=== PATIENT | male | born 1960 | race Caucasian/White ===

== ENCOUNTER 2021-09-12 12:05 | Emergency (ER) | payer MEDICARE, MEDICAID, SELFPAY ==
--- NOTE | ~2021-09-12 | CT_ITS ---
EXAMINATION: CT ABDOMEN AND PELVIS WITH CONTRAST CLINICAL INFORMATION: Upper abdominal pain. COMPARISON: None TECHNIQUE: Multidetector volumetric images were obtained from the superior aspect of the liver through the pubic symphysis following administration 85 mL of Omnipaque 350 intravenous contrast. Sagittal and coronal reformatted images were obtained on the technologist's workstation. Oral contrast: No This CT examination was performed using dose optimization techniques as appropriate, variously including the following: *Automated exposure control *Adjustment of mA and/or kV according to patient size (this includes techniques or standardized protocols for targeted exams where dose is matched to indication/reason for exam; i.e. extremities or head) *Use of iterative reconstruction technique DLP: 778 mGy-cm FINDINGS: LUNG BASES: The lung bases are clear. Heart size is normal. There is esophageal mural thickening or small hiatal hernia at the GE junction. LIVER, GALLBLADDER, AND BILIARY TREE: The liver is normal in size, shape, and hypoattenuated. No focal hepatic lesion or biliary ductal dilatation is present. The gallbladder is unremarkable with no evidence of radiopaque gallstones, gallbladder wall thickening, or obvious pericholecystic inflammatory changes. PANCREAS: The head and the proximal body the pancreas appears atrophic. SPLEEN: Unremarkable. ADRENAL GLANDS: Unremarkable. KIDNEYS AND URETERS: The kidneys are normal in size, shape, and attenuation. No hydronephrosis, hydroureter, or calculi seen. No perinephric stranding. BLADDER: Mild bladder wall thickening is seen without any radiopaque calculi Unremarkable. GASTROINTESTINAL TRACT: There is moderate scattered stool seen throughout the colon without distention. The small bowel loops are nonspecific. The appendix is normal caliber. There is focal mesenteric haziness in the midabdomen with small shotty mesenteric lymph nodes seen. No free air or free fluid seen. ABDOMINAL WALL: No significant hernia is appreciated. LYMPH NODES: Normal. VASCULAR: Unremarkable. PELVIC VISCERA: The prostate gland is mildly enlarged with central gland calcification. OSSEOUS STRUCTURES: There are degenerative disc changes with vacuum disc phenomenon at T12-L1 disc level with mild ventral and dorsal spondylosis. CT/CT abdomen pelvis w con IMPRESSION: Kori mesentery in the midabdomen with small shotty lymph nodes seen. The findings are nonspecific and etiology is not known.. Moderate constipation. Atrophic pancreatic head, uncinate process and the proximal body. Mild fatty attenuation of liver. Fleischner guidelines were followed.
[2021-09-12 12:10] VITALS: BP 134/83; PULSE 89; RESP 18; TEMP 36.6; O2SAT 97; BMI 39.4
[2021-09-12 13:37] LABS: MANUAL DIFF FLAG NO
[2021-09-12 13:39] LABS: Basophils Percent Auto 0.4 % (0-2); Eosinophils Absolute Auto 0.1 X10*3/uL (0.0-0.4); Eosinophils Percent Auto 2.1 % (0-4); Hematocrit 42.4 % (42.0-52.0); Hemoglobin 14.2 g/dl (14.0-18.0); Imm Gran Abs Auto 0.02 X10*3/uL (0.00-0.03); Imm Gran Pct Auto 0.3 % (0.0-0.4); Lymphocytes Absolute Auto 2.1 X10*3/uL (1.2-4.9); Lymphocytes Percent Auto 30.9 % (20-40); Mean Corpuscular HGB Conc 33.5 g/dl (31.0-36.0); Mean Corpuscular Volume 86.7 fL (80.0-98.0); Mean Platelet Volume 9.5 fL (9.4-12.4); Monocytes Absolute Auto 0.5 X10*3/uL (0.1-1.2); Monocytes Percent Auto 7.9 % (2-11); Neutrophils Percent Auto 58.4 % (45-73); Platelet Count 198 X10*3/uL (160-400); Red Blood Count 4.89 X10*6/uL (4.60-5.80); Red Cell Distribution Width 11.9 % (11.0-16.0); White Blood Count 6.8 X10*3/uL (4.8-10.8)
[2021-09-12 13:50] LABS: Anion Gap 12 (12-20); Blood Urea Nitrogen 18 mg/dL (9-16); Calcium 9.2 mg/dL (8.4-10.2); Carbon Dioxide 28 mmol/L (22-29); Chloride 101 mmol/L (96-108); Creatinine Clr Calc Pharmacy 73.3; Estimated Glomerular Filt Rate > 60; Glucose Random 325 mg/dL (60-115); Potassium 4.1 mmol/L (3.3-5.1); Sodium 137 mmol/L (135-145)
[2021-09-12 15:56] LABS: Appearance Urine CLEAR; Color Urine YELLOW; Glucose Urine UA >=1000 MG/DL (NEG); Leukocyte Esterase Urine NEG (NEG); Nitrite Urine NEG (NEG); PH 5.5 (5.0-8.0); Specific Gravity - Urine 1.025 (1.005-1.025); Urine Blood NEG (NEG); Urine Ketones 5 MG/DL (NEG); Urine Protein TRACE MG/DL (NEG-TRACE)
[2021-09-12 16:04] LABS: Bacteria Urine TRACE /LPF; RBC Urine 0 /HPF (0); WBC Urine 0 /HPF (0-4)
[2021-09-12 16:11] VITALS: BP 141/81; PULSE 84; RESP 18; TEMP 36.6; O2SAT 95
--- NOTE | 2021-09-12 16:20 | ED.ABDPAIN ---
HPI - Abdominal Pain General Chief Complaint: Abdominal Pain <JESS Quezada Last Filed: 09/12/21 17:54> Stated Complaint: abd pain <JESS Quezada Last Filed: 09/12/21 17:54> Time Seen by Provider: 09/12/21 15:51 <JESS Quezada Last Filed: 09/12/21 17:54> Source: patient <JESS Quezada Last Filed: 09/12/21 17:54> Mode of arrival: ambulatory <JESS Quezada Last Filed: 09/12/21 17:54> Limitations: no limitations <JESS Quezada Last Filed: 09/12/21 17:54> History of Present Illness HPI narrative: 61-year-old IDDM male presents for 3 days of abdominal pain. Patient states his entire abdomen hurts, and he feels gassy and bloated. Patient went to his primary care today, who sent him here for evaluation. Patient had a regular bowel movement yesterday. Patient has a history of constipation, and 5 days ago he had not had a stool for 2 and half days so he started using MiraLax. Three days ago he had a dark stool. No dark, tarry, or bloody stool since then. His pain is 5/10 now, he has not been able to sleep due to the pain. He does not drink alcohol, does not take ibuprofen. No abdominal surgeries. No fevers, no vomiting, no diarrhea, no nausea. No dysuria or hematuria. No radiation of the pain. <JESS Quezada Last Filed: 09/12/21 17:54> MD elicited complaint: abdominal pain <JESS Quezada Last Filed: 09/12/21 17:54> Pertinent past history: constipation <JESS Quezada Last Filed: 09/12/21 17:54> Onset (ago): day(s) (3) <JESS Quezada Last Filed: 09/12/21 17:54> Pain Consistency: constant <JESS Quezada Last Filed: 09/12/21 17:54> Location: diffuse <JESS Quezada Last Filed: 09/12/21 17:54> Severity: moderate <JESS Quezada Last Filed: 09/12/21 17:54> Pain scale (0-10): 5 <JESS Quezada Last Filed: 09/12/21 17:54> Quality: cramping and aching <JESS Quezada Last Filed: 09/12/21 17:54> Radiation: none <JESS Quezada Last Filed: 09/12/21 17:54> Migration to: no migration <JESS Quezada Last Filed: 09/12/21 17:54> Exacerbating factors: nothing <JESS Quezada Last Filed: 09/12/21 17:54> Relieving factors: nothing <JESS Quezada Last Filed: 09/12/21 17:54> Related Data Home Medications: Previous Rx's Medication Instructions Recorded lactulose 20 gram oral packet 20 g PO DAILY 3 Days #3 ea 09/12/21 <JESS Quezada Last Filed: 09/12/21 17:54> Allergies/Adverse Reactions: Allergies Allergy/AdvReac Type Severity Reaction Status Date / Time codeine [CODEINE] Allergy Unknown CONFUSION Unverified 03/08/20 15:06 From PERCOCET Allergy Unknown CONFUSION Uncoded 03/08/20 15:06 <JESS Quezada Last Filed: 09/12/21 17:54> Review of Systems Constitutional: Denies body ache(s), Denies chills, Denies fatigue, Denies fever(s), Denies headache(s) and Denies weakness <JESS Quezada Last Filed: 09/12/21 17:54> Denies vertigo, Denies dizziness, Denies otalgia, Denies headache(s), Denies post nasal drip and Denies sore throat <JESS Quezada Last Filed: 09/12/21 17:54> Cardiovascular: Denies chest pain, Denies syncope, Denies leg edema, Denies lightheadedness, Denies Loss of Consciousness, Denies palpitations and Denies dyspnea <JESS Quezada Last Filed: 09/12/21 17:54> Respiratory: Denies chest congestion, Denies cough and Denies dyspnea <JESS Quezada - Last Filed: 09/12/21 17:54> Gastrointestinal: Reports abdominal pain, Reports melena (once 3 days ago), Reports bloating, Denies hematochezia, Denies tenesmus, Denies coffee ground emesis, Reports constipation, Denies excessive flatus, Denies diarrhea, Denies nausea and Denies vomiting <JESS Quezada - Last Filed: 09/12/21 17:54> Genitourinary: Reports no additional male genitourinary complaints <JESS Quezada - Last Filed: 09/12/21 17:54> Musculoskeletal: Reports no additional musculoskeletal complaints <JESS Quezada - Last Filed: 09/12/21 17:54> Skin/Breast: Denies rash <JESS Quezada - Last Filed: 09/12/21 17:54> Denies confusion, Denies vertigo, Denies dizziness, Denies syncope, Denies headache(s) and Denies weakness <JESS Quezada - Last Filed: 09/12/21 17:54> Psychiatric: Denies anxiety, Denies confusion and Denies depression <JESS Quezada - Last Filed: 09/12/21 17:54> Endocrine: Denies fatigue and Denies palpitations <JESS Quezada - Last Filed: 09/12/21 17:54> [facility] Past Medical History [facility] Narrative: IDDM HTN HLD asthma <JESS Quezada - Last Filed: 09/12/21 17:54> Social History Social History: Social History Advance Directives: No Advance Directives Information Provided: No <JESS Quezada - Last Filed: 09/12/21 17:54> Physical Exam ED Vital Signs: Vital Signs - 24 hr 09/12/21 12:10 09/12/21 16:11 09/12/21 18:59 Temperature 97.8 F 98 F 98 F Pulse Rate 89 84 82 Respiratory Rate 18 18 16 Blood Pressure 134/83 141/81 H 134/74 Pulse Oximetry 97 95 95 BMI result Body Mass Index 39.4 <JESS Quezada Last Filed: 09/12/21 17:54> Vital Signs - 24 hr 09/12/21 12:10 09/12/21 16:11 09/12/21 18:59 Temperature 97.8 F 98 F 98 F Pulse Rate 89 84 82 Respiratory Rate 18 18 16 Blood Pressure 134/83 141/81 H 134/74 Pulse Oximetry 97 95 95 BMI result Body Mass Index 39.4 <Chris Fisher [place] - Last Filed: 09/12/21 21:45> Const General: alert, awake and tired appearing; No confusion <Arely Hardy [facility] Last Filed: 09/12/21 17:54> Nutritional Appearance: obese centrally obese <Arely Hardy [facility] Last Filed: 09/12/21 17:54> Orientation/consciousness: patient oriented x3 and No confusion <Arely Hardy [place] - Last Filed: 09/12/21 17:54> Limitations: no limitations <Arely Hardy [facility] Last Filed: 09/12/21 17:54> HENMT Head: Yes normal to inspection, Yes No palpable skull fracture present, Yes normocephalic and Yes atraumatic <Arely Hardy [facility] Last Filed: 09/12/21 17:54> Ears: hearing grossly normal bilaterally <Arely Hardy [place] - Last Filed: 09/12/21 17:54> General nose exam: Normal external nose present <Arely Hardy [facility] Last Filed: 09/12/21 17:54> Face and sinus: Yes normal facial exam <Arely Hardy [facility] Last Filed: 09/12/21 17:54> Mouth: Normal oral and palatal mucosa present <Arely Hardy [facility] Last Filed: 09/12/21 17:54> Throat: Yes posterior oropharynx normal <Arely Hardy [facility] Last Filed: 09/12/21 17:54> Eyes Sclerae: sclerae normal <Arely Hardy [facility] Last Filed: 09/12/21 17:54> Pupils: Equal, round and reactive pupils present <JESS Quezada Last Filed: 09/12/21 17:54> EOM: EOMs intact bilaterally <Arely Hardy [facility] Last Filed: 09/12/21 17:54> Neck Neck: Yes normal visual inspection, Yes full ROM, Yes no lymphadenopathy, Yes no meningeal signs and Yes trachea midline <Arely Hardy PA - Last Filed: 09/12/21 17:54> Resp Effort & Inspection: normal respiratory effort and able to speak in complete sentences <Arely Hardy [facility] Last Filed: 09/12/21 17:54> Auscultation: clear to auscultation bilaterally, no crackles, no rales, no rhonchi and no wheezes <Arely Hardy [facility] Last Filed: 09/12/21 17:54> Cardio Rate: regular rate <Arely Hardy [facility] Last Filed: 09/12/21 17:54> Rhythm: regular rhythm <Arely Hardy [facility] Last Filed: 09/12/21 17:54> Heart sounds: S1 normal heart sound present and S2 normal heart sound present <Arely Hardy [facility] Last Filed: 09/12/21 17:54> GI Inspection: Yes distended, Yes Abdominal panniculus present and Yes obesity <Arely Hardy [facility] Last Filed: 09/12/21 17:54> Palpation (GI): Soft to palpation, not firm, Tenderness to palpation present (GI) in the epigastrum, in the LUQ and in the RUQ, Guarding due to palpation present (GI) in the LUQ and in the RUQ and not rigid <Arely Hardy [facility] Last Filed: 09/12/21 17:54> Percussion: Yes normal to percussion <Arely Hardy [facility] Last Filed: 09/12/21 17:54> Auscultation: normal bowel sounds <Arely Hardy [facility] Last Filed: 09/12/21 17:54> Rectal Exam - Male: Yes visual inspection normal, Yes normal sphincter tone, No External hemorrhoid(s) present, No fecal impaction, No Anal fissure(s) present, No hemorrhoids and No tenderness <Arely Hardy [facility] Last Filed: 09/12/21 17:54> General: Yes no CVA tenderness <Arely Hardy [facility] Last Filed: 09/12/21 17:54> Back/Spine/Pelvis Back: no CVA tenderness <Arely Hardy [facility] Last Filed: 09/12/21 17:54> Skin Other: pallor <JESS Quezada - Last Filed: 09/12/21 17:54> Neuro General: patient oriented x3, no meningeal signs and No confusion <JESS Quezada Last Filed: 09/12/21 17:54> Cranial nerves: Yes Equal, round and reactive pupils present <JESS Quezada Last Filed: 09/12/21 17:54> Cognition (Neuro): normal cognition <JESS Quezada Last Filed: 09/12/21 17:54> Extrem General: Yes normal to inspection, Yes full ROM and Yes capillary refill normal <JESS Quezada Last Filed: 09/12/21 17:54> Psych Appearance: grossly normal <JESS Quezada Last Filed: 09/12/21 17:54> Mental Status: mental status grossly normal <JESS Quezada Last Filed: 09/12/21 17:54> Speech and movement: Normal speech and movement present <JESS Quezada Last Filed: 09/12/21 17:54> Affect: normal affect <JESS Quezada Last Filed: 09/12/21 17:54> Attitude: cooperative <JESS Quezada - Last Filed: 09/12/21 17:54> Thought process: Normal thought process present <JESS Quezada Last Filed: 09/12/21 17:54> Course Course Course Narrative: 61-year-old male with pmh of insulin dependent diabetes, hypertension, hyperlipidemia, and asthma, presents with 3 days upper abdominal pain. Patient also endorses 1 dark stool 3 days ago. Patient states his blood sugar runs in the 300s normally. On exam, tired appearing patient with stable vitals, abdomen exam reveals tenderness and guarding in right upper quadrant, left upper quadrant and epigastrium. Rectal exam shows no fecal impaction, no gross blood or stool on my finger. Will get labs, guaiac, lipase, COVID, will CT patient's abdomen. <JESS Quezada Last Filed: 09/12/21 17:54> Reevaluation(s) Reevaluation #1: Patient has allergy to oxycodone; gave tylenol for pain. Patient has negative guaiac, no leukocytosis, chemistries are within normal limits, lipase only 10, COVID negative, no elevated LFTs or bilirubin. Patient's blood sugar is 325. Awaiting CT results. Signed pt out to FEDE Fisher <JESS Quezada - Last Filed: 09/12/21 17:54> Reevaluation #2: Patient's EKG came back negative for STEMI. Patient's troponins negative. CT scan shows moderate constipation and no other emergent medical/surgical etiology. Patient will be discharged with lactulose. Patient is not having GI bleed. Patient is hemodynamically stable. <JESS Alaniz - Last Filed: 09/12/21 21:45> Time: 21:30 <JESS Alaniz - Last Filed: 09/12/21 21:45> MDM - Abdominal Pain MDM Narrative Medical decision making narrative: Constipation <JESS Alaniz - Last Filed: 09/12/21 21:45> Lab Data Result diagrams: : 09/12/21 13:32 09/12/21 13:32 <JESS Quezada - Last Filed: 09/12/21 17:54> Labs: Lab Results 09/12/21 09/12/21 09/12/21 Range/Units 13:32 13:32 15:46 WBC 6.8 (4.8-10.8) X10*3/uL RBC 4.89 (4.60-5.80) X10*6/uL Hgb 14.2 (14.0-18.0) g/dl Hct 42.4 (42.0-52.0) % MCV 86.7 (80.0-98.0) fL MCH 29.0 (27.0-33.0) pg MCHC 33.5 (31.0-36.0) g/dl RDW 11.9 (11.0-16.0) % Plt Count 198 (160-400) X10*3/uL MPV 9.5 (9.4-12.4) fL Immature Gran % (Auto) 0.3 (0.0-0.4) % Neut % (Auto) 58.4 (45-73) % Lymph % (Auto) 30.9 (20-40) % Sanborn % (Auto) 7.9 (2-11) % Eos % (Auto) 2.1 (0-4) % Baso % (Auto) 0.4 (0-2) % Lymph # (Auto) 2.1 (1.2-4.9) X10*3/uL Sanborn # (Auto) 0.5 (0.1-1.2) X10*3/uL Eos # (Auto) 0.1 (0.0-0.4) X10*3/uL Baso # (Auto) 0.0 (0.0-0.2) X10*3/uL Abs Immat Gran (auto) 0.02 (0.00-0.03) X10*3/uL Absolute Neuts (auto) 4.0 (2.0-8.3) x10*3/uL Absolute Nucleated RBC 0.000 (0.0-0.012) X10*3/uL Nucleated RBC % (auto) 0.0 (0.0-0.2) /100WBC Sodium 137 (135-145) mmol/L Potassium 4.1 (3.3-5.1) mmol/L Chloride 101 (96-108) mmol/L Carbon Dioxide 28 (22-29) mmol/L Anion Gap 12 (12-20) BUN 18 H (9-16) mg/dL Creatinine 1.17 (0.5-1.4) mg/dL Estim Creat Clear Calc 73.3 Estimated GFR > 60 Random Glucose 325 H (60-115) mg/dL Calcium 9.2 (8.4-10.2) mg/dL Total Bilirubin 0.6 (0.0-1.0) mg/dL Direct Bilirubin 0.2 (0.0-0.5) mg/dL AST 19 (5-37) U/L ALT 32 (0-40) U/L Alkaline Phosphatase 74 (39-117) U/L Troponin I High Sens (<3.5-35.0) ng/L Total Protein 7.2 (6.5-8.0) g/dL Albumin 4.1 (3.5-5.0) g/dL Lipase 10 (8-78) U/L Urine Color YELLOW Urine Appearance CLEAR Urine pH 5.5 (5.0-8.0) Ur Specific Murdo 1.025 (1.005-1.025) Urine Protein TRACE (NEG-TRACE) MG/DL Urine Glucose (UA) >=1000 H (NEG) MG/DL Urine Ketones 5 (NEG) MG/DL Urine Blood NEG (NEG) Urine Nitrite NEG (NEG) Ur Leukocyte Esterase NEG (NEG) Urine RBC 0 (0) /HPF Urine WBC 0 (0-4) /HPF Ur Squamous Epith Cells NONE /LPF Urine Bacteria TRACE /LPF Stool Occult Blood (NEGATIVE) COVID-19 (DORI) (Negative) COVID-19 Clin Com 09/12/21 09/12/21 09/12/21 Range/Units 16:34 16:35 17:53 WBC (4.8-10.8) X10*3/uL RBC (4.60-5.80) X10*6/uL Hgb (14.0-18.0) g/dl Hct (42.0-52.0) % MCV (80.0-98.0) fL MCH (27.0-33.0) pg MCHC (31.0-36.0) g/dl RDW (11.0-16.0) % Plt Count (160-400) X10*3/uL MPV (9.4-12.4) fL Immature Gran % (Auto) (0.0-0.4) % Neut % (Auto) (45-73) % Lymph % (Auto) (20-40) % Sanborn % (Auto) (2-11) % Eos % (Auto) (0-4) % Baso % (Auto) (0-2) % Lymph # (Auto) (1.2-4.9) X10*3/uL Sanborn # (Auto) (0.1-1.2) X10*3/uL Eos # (Auto) (0.0-0.4) X10*3/uL Baso # (Auto) (0.0-0.2) X10*3/uL Abs Immat Gran (auto) (0.00-0.03) X10*3/uL Absolute Neuts (auto) (2.0-8.3) x10*3/uL Absolute Nucleated RBC (0.0-0.012) X10*3/uL Nucleated RBC % (auto) (0.0-0.2) /100WBC Sodium (135-145) mmol/L Potassium (3.3-5.1) mmol/L Chloride (96-108) mmol/L Carbon Dioxide (22-29) mmol/L Anion Gap (12-20) BUN (9-16) mg/dL Creatinine (0.5-1.4) mg/dL Estim Creat Clear Calc Estimated GFR Random Glucose (60-115) mg/dL Calcium (8.4-10.2) mg/dL Total Bilirubin (0.0-1.0) mg/dL Direct Bilirubin (0.0-0.5) mg/dL AST (5-37) U/L ALT (0-40) U/L Alkaline Phosphatase (39-117) U/L Troponin I High Sens 4.8 (<3.5-35.0) ng/L Total Protein (6.5-8.0) g/dL Albumin (3.5-5.0) g/dL Lipase (8-78) U/L Urine Color Urine Appearance Urine pH (5.0-8.0) Ur Specific Murdo (1.005-1.025) Urine Protein (NEG-TRACE) MG/DL Urine Glucose (UA) (NEG) MG/DL Urine Ketones (NEG) MG/DL Urine Blood (NEG) Urine Nitrite (NEG) Ur Leukocyte Esterase (NEG) Urine RBC (0) /HPF Urine WBC (0-4) /HPF Ur Squamous Epith Cells /LPF Urine Bacteria /LPF Stool Occult Blood NEGATIVE (NEGATIVE) COVID-19 (DORI) Negative (Negative) COVID-19 Clin Com See Note <JESS Quezada - Last Filed: 09/12/21 17:54> Lab Results 09/12/21 09/12/21 09/12/21 Range/Units 13:32 13:32 15:46 WBC 6.8 (4.8-10.8) X10*3/uL RBC 4.89 (4.60-5.80) X10*6/uL Hgb 14.2 (14.0-18.0) g/dl Hct 42.4 (42.0-52.0) % MCV 86.7 (80.0-98.0) fL MCH 29.0 (27.0-33.0) pg MCHC 33.5 (31.0-36.0) g/dl RDW 11.9 (11.0-16.0) % Plt Count 198 (160-400) X10*3/uL MPV 9.5 (9.4-12.4) fL Immature Gran % (Auto) 0.3 (0.0-0.4) % Neut % (Auto) 58.4 (45-73) % Lymph % (Auto) 30.9 (20-40) % Sanborn % (Auto) 7.9 (2-11) % Eos % (Auto) 2.1 (0-4) % Baso % (Auto) 0.4 (0-2) % Lymph # (Auto) 2.1 (1.2-4.9) X10*3/uL Sanborn # (Auto) 0.5 (0.1-1.2) X10*3/uL Eos # (Auto) 0.1 (0.0-0.4) X10*3/uL Baso # (Auto) 0.0 (0.0-0.2) X10*3/uL Abs Immat Gran (auto) 0.02 (0.00-0.03) X10*3/uL Absolute Neuts (auto) 4.0 (2.0-8.3) x10*3/uL Absolute Nucleated RBC 0.000 (0.0-0.012) X10*3/uL Nucleated RBC % (auto) 0.0 (0.0-0.2) /100WBC Sodium 137 (135-145) mmol/L Potassium 4.1 (3.3-5.1) mmol/L Chloride 101 (96-108) mmol/L Carbon Dioxide 28 (22-29) mmol/L Anion Gap 12 (12-20) BUN 18 H (9-16) mg/dL Creatinine 1.17 (0.5-1.4) mg/dL Estim Creat Clear Calc 73.3 Estimated GFR > 60 Random Glucose 325 H (60-115) mg/dL Calcium 9.2 (8.4-10.2) mg/dL Total Bilirubin 0.6 (0.0-1.0) mg/dL Direct Bilirubin 0.2 (0.0-0.5) mg/dL AST 19 (5-37) U/L ALT 32 (0-40) U/L Alkaline Phosphatase 74 (39-117) U/L Troponin I High Sens (<3.5-35.0) ng/L Total Protein 7.2 (6.5-8.0) g/dL Albumin 4.1 (3.5-5.0) g/dL Lipase 10 (8-78) U/L Urine Color YELLOW Urine Appearance CLEAR Urine pH 5.5 (5.0-8.0) Ur Specific Murdo 1.025 (1.005-1.025) Urine Protein TRACE (NEG-TRACE) MG/DL Urine Glucose (UA) >=1000 H (NEG) MG/DL Urine Ketones 5 (NEG) MG/DL Urine Blood NEG (NEG) Urine Nitrite NEG (NEG) Ur Leukocyte Esterase NEG (NEG) Urine RBC 0 (0) /HPF Urine WBC 0 (0-4) /HPF Ur Squamous Epith Cells NONE /LPF Urine Bacteria TRACE /LPF Stool Occult Blood (NEGATIVE) COVID-19 (DORI) (Negative) COVID-19 Clin Com 09/12/21 09/12/21 09/12/21 Range/Units 16:34 16:35 17:53 WBC (4.8-10.8) X10*3/uL RBC (4.60-5.80) X10*6/uL Hgb (14.0-18.0) g/dl Hct (42.0-52.0) % MCV (80.0-98.0) fL MCH (27.0-33.0) pg MCHC (31.0-36.0) g/dl RDW (11.0-16.0) % Plt Count (160-400) X10*3/uL MPV (9.4-12.4) fL Immature Gran % (Auto) (0.0-0.4) % Neut % (Auto) (45-73) % Lymph % (Auto) (20-40) % Sanborn % (Auto) (2-11) % Eos % (Auto) (0-4) % Baso % (Auto) (0-2) % Lymph # (Auto) (1.2-4.9) X10*3/uL [place] # (Auto) (0.1-1.2) X10*3/uL Eos # (Auto) (0.0-0.4) X10*3/uL Baso # (Auto) (0.0-0.2) X10*3/uL Abs Immat Gran (auto) (0.00-0.03) X10*3/uL Absolute Neuts (auto) (2.0-8.3) x10*3/uL Absolute Nucleated RBC (0.0-0.012) X10*3/uL Nucleated RBC % (auto) (0.0-0.2) /100WBC Sodium (135-145) mmol/L Potassium (3.3-5.1) mmol/L Chloride (96-108) mmol/L Carbon Dioxide (22-29) mmol/L Anion Gap (12-20) BUN (9-16) mg/dL Creatinine (0.5-1.4) mg/dL Estim Creat Clear Calc Estimated GFR Random Glucose (60-115) mg/dL Calcium (8.4-10.2) mg/dL Total Bilirubin (0.0-1.0) mg/dL Direct Bilirubin (0.0-0.5) mg/dL AST (5-37) U/L ALT (0-40) U/L Alkaline Phosphatase (39-117) U/L Troponin I High Sens 4.8 (<3.5-35.0) ng/L Total Protein (6.5-8.0) g/dL Albumin (3.5-5.0) g/dL Lipase (8-78) U/L Urine Color Urine Appearance Urine pH (5.0-8.0) Ur Specific Murdo (1.005-1.025) Urine Protein (NEG-TRACE) MG/DL Urine Glucose (UA) (NEG) MG/DL Urine Ketones (NEG) MG/DL Urine Blood (NEG) Urine Nitrite (NEG) Ur Leukocyte Esterase (NEG) Urine RBC (0) /HPF Urine WBC (0-4) /HPF Ur Squamous Epith Cells /LPF Urine Bacteria /LPF Stool Occult Blood NEGATIVE (NEGATIVE) COVID-19 (DORI) Negative (Negative) COVID-19 Clin Com See Note <JESS Alaniz - Last Filed: 09/12/21 21:45> ECG Data Interpretation: Normal sinus rhythm. Reticular rate 78. Pr interval 164. QRS 82. QTC 442. Negative STEMI <JESS Alaniz - Last Filed: 09/12/21 21:45> Discharge Plan Discharge Clinical Impression: Abdominal pain, Constipation <JESS Quezada Last Filed: 09/12/21 17:54> Patient Disposition: Home, Self-Care <JESS Quezada - Last Filed: 09/12/21 17:54> Instructions: Constipation (DC), Abdominal Pain (ED) <JESS Quezada - Last Filed: 09/12/21 17:54> Additional Instructions: Your blood work and images came back negative for any acute medical/surgical emergency. Abdominal CT scan shows constipation. Will discharge with lactulose. Return to the ED for worsening abdominal pain, nausea, vomiting, fever, chills, chest pain, shortness of breath, blood in stool, weakness, dizziness, or any other concerning symptoms. <JESS Quezada Last Filed: 09/12/21 17:54> Prescriptions: New lactulose 20 gram packet 20 g PO DAILY 3 Days Qty: 3 0RF <JESS Quezada Last Filed: 09/12/21 17:54> Interventions: ED Discharge Assessment Last Done: 09/12/21 21:59 <JESS Quezada Last Filed: 09/12/21 17:54> Discharge Date/Time: 09/12/21 21:59 <JESS Quezada Last Filed: 09/12/21 17:54> Print Language: Burkinan <JESS Quezada Last Filed: 09/12/21 17:54>
[2021-09-12 16:43] LABS: Alanine Aminotransferase 32 U/L (0-40); Albumin Level 4.1 g/dL (3.5-5.0); Alkaline Phosphatase 74 U/L (39-117); Aspartate Amino Transferase 19 U/L (5-37); Bilirubin Direct 0.2 mg/dL (0.0-0.5); Bilirubin Total 0.6 mg/dL (0.0-1.0); Lipase 10 U/L (8-78); Total Protein 7.2 g/dL (6.5-8.0)
[2021-09-12 16:47] LABS: OBS Int Ctl Valid YES; OBS1 NEGATIVE (NEGATIVE)
[2021-09-12] MEDS: iohexoL 350 MG/ML 100 ML INFUS..BTL IV (16:52)
[2021-09-12] MEDS: 0.9 % Sodium Chloride 1,000 ML 999 ML IV (16:56)
[2021-09-12 17:03] LABS: COVID-19 Test Negative (Negative); IDNOW Serial# 16C4AD1C
--- NOTE | 2021-09-12 17:45 | ECG_ITS ---
Test Reason : ABD PAIN Blood Pressure : / mmHG Vent. Rate : 078 BPM Atrial Rate : 078 BPM P-R Int : 164 ms QRS Dur : 082 ms QT Int : 388 ms P-R-T Axes : 028 032 039 degrees QTc Int : 442 ms Normal sinus rhythm Nonspecific T wave abnormality Abnormal ECG When compared with ECG of 23-FEB-2018 17:31, No significant change was found Referred By: Chris Fisher Electronically Signed By:RAFAT NO MD
[2021-09-12 18:26] LABS: Troponin-I High Sensitivity 4.8 ng/L (<3.5-35.0)
[2021-09-12 18:59] VITALS: BP 134/74; PULSE 82; RESP 16; TEMP 36.6; O2SAT 95
== END 2021-09-12 21:59 | disposition home or self-care (01) ==
PROVIDERS: Physician Assistant; Emergency Provider Emergency Medicine; PCP Internal Medicine
DX: K59.00 Constipation, unspecified (principal); R10.10 Upper abdominal pain, unspecified; Z20.822 Contact with and (suspected) exposure to COVID-19; E11.9 Type 2 diabetes mellitus without complications; I10 Essential (primary) hypertension; E78.5 Hyperlipidemia, unspecified; Z79.4 Long term (current) use of insulin
CPT/HCPCS: 36415; 74177; 80048; 80076; 81001; 82272; 83690; 84484; 85025; 87635; 93005; 96360; 99284; Q9967

== ENCOUNTER 2022-03-05 15:22 | Outpatient (REF) | payer MEDICARE, MEDICAID, SELFPAY ==
--- NOTE | ~2022-03-05 | US_ITS ---
EXAMINATION: US RETROPERITONEAL COMPLETE (RENAL) CLINICAL INFORMATION: Right-sided flank pain/abdominal pain. COMPARISON: CT abdomen and pelvis 09/12/2021. TECHNIQUE: Real-time imaging of the kidneys and bladder. Technically limited study secondary to body habitus. FINDINGS: RIGHT KIDNEY: 11.6 x 4.7 x 5.4 cm (SAG x AP x TRV). The kidney is normal in size, contour, and echogenicity. Renal cortical thickness is normal. No calculi or focal parenchymal lesions. No hydronephrosis. LEFT KIDNEY: 9.6 x 6.5 x 6.6 cm (SAG x AP x TRV). The kidney is normal in size, contour, and echogenicity. Renal cortical thickness is normal. No focal parenchymal lesions or hydronephrosis. 2 mm nonobstructing lower pole renal stone. BLADDER: Well distended and normal. Left ureteral jet is demonstrated; right is not. Prevoid bladder volume is 218 mL. Postvoid bladder volume is 15.8 mL. ADDITIONAL FINDINGS: Prostate is normal in volume measuring 24.9 mL. US/US retroperitoneal comp IMPRESSION: 2 mm nonobstructing left lower pole renal stone.
== END 2022-03-05 15:23 | disposition home or self-care (01) ==
LOC: HO.US 15:22
PROVIDERS: Visit Provider Internal Medicine
DX: R10.9 Unspecified abdominal pain (principal)
CPT/HCPCS: 76770

== ENCOUNTER 2023-10-03 18:36 | Emergency (ER) | payer MEDICARE, SELFPAY ==
--- NOTE | ~2023-10-03 | CT_ITS ---
EXAMINATION: CT ABDOMEN AND PELVIS WITHOUT CONTRAST CLINICAL INFORMATION: Abdominal pain. COMPARISON: None available. TECHNIQUE: Multidetector volumetric imaging was performed from the superior aspect of the liver through the pubic symphysis. Sagittal and coronal reformatted images were obtained on the technologist's workstation. This CT examination was performed using dose optimization techniques as appropriate, variously including the following: *Automated exposure control *Adjustment of mA and/or kV according to patient size (this includes techniques or standardized protocols for targeted exams where dose is matched to indication/reason for exam; i.e. extremities or head) *Use of iterative reconstruction technique DLP: 670 mGy-cm FINDINGS: LUNG BASES: The visualized lung bases are unremarkable. LIVER, GALLBLADDER, AND BILIARY TREE: The liver is normal in size, shape, and attenuation. No focal hepatic lesion or biliary ductal dilatation is present. The gallbladder is unremarkable with no evidence of radiopaque gallstones, gallbladder wall thickening, or obvious pericholecystic inflammatory changes. PANCREAS: There is significant fatty infiltration of the pancreas. SPLEEN: Unremarkable. ADRENAL GLANDS: Unremarkable. KIDNEYS AND URETERS: The kidneys are normal in size, shape, and attenuation. No hydronephrosis, hydroureter, or calculi seen. No perinephric stranding. BLADDER: Unremarkable. GASTROINTESTINAL TRACT: The small and large bowel are unremarkable. The appendix is unremarkable. ABDOMINAL WALL: No significant hernia is appreciated. LYMPH NODES: Normal. VASCULAR: There is mild atherosclerotic plaque of the abdominal aorta and proximal branches. PELVIC VISCERA: Unremarkable. OSSEOUS STRUCTURES: There is diffuse thoracolumbar disc degenerative change most pronounced at T12-L1. CT/CT abdomen pelvis wo IV con IMPRESSION: 1. No acute abnormality within the abdomen or pelvis. 2. Significant fatty infiltration of the pancreas. 3. Mild atherosclerotic plaque of the abdominal aorta and proximal branches. 4. Diffuse thoracolumbar disc degenerative change most pronounced at T12-L1. Fleischner guidelines were followed.
[2023-10-03 19:20] VITALS: BP 125/85; PULSE 90; RESP 18; TEMP 36.6; O2SAT 97; BMI 40.3
[2023-10-03 20:08] LABS: MANUAL DIFF FLAG NO
[2023-10-03 20:11] LABS: Basophils Absolute Auto 0.1 X10*3/uL (0.0-0.2); Basophils Percent Auto 0.8 % (0-2); Eosinophils Absolute Auto 0.1 X10*3/uL (0.0-0.4); Eosinophils Percent Auto 1.4 % (0-4); Hematocrit 42.6 % (42.0-52.0); Hemoglobin 14.8 g/dl (14.0-18.0); Imm Gran Abs Auto 0.02 X10*3/uL (0.00-0.03); Imm Gran Pct Auto 0.3 % (0.0-0.4); Lymphocytes Absolute Auto 1.7 X10*3/uL (1.2-4.9); Lymphocytes Percent Auto 25.9 % (20-40); Mean Corpuscular HGB Conc 34.7 g/dl (31.0-36.0); Mean Corpuscular Hemoglobin 29.9 pg (27.0-33.0); Mean Corpuscular Volume 86.1 fL (80.0-98.0); Mean Platelet Volume 9.7 fL (9.4-12.4); Monocytes Absolute Auto 0.4 X10*3/uL (0.1-1.2); Monocytes Percent Auto 5.6 % (2-11); Neutrophils Absolute Auto 4.4 x10*3/uL (2.0-8.3); Platelet Count 230 X10*3/uL (160-400); Red Blood Count 4.95 X10*6/uL (4.60-5.80); White Blood Count 6.6 X10*3/uL (4.8-10.8)
[2023-10-03 20:25] LABS: Alanine Aminotransferase 22 U/L (0-40); Albumin Level 4.3 g/dL (3.5-5.0); Alkaline Phosphatase 60 U/L (39-117); Anion Gap 13 (12-20); Aspartate Amino Transferase 17 U/L (5-37); Bilirubin Total 0.5 mg/dL (0.0-1.0); Blood Urea Nitrogen 21 mg/dL (9-16); Calcium 9.7 mg/dL (8.4-10.2); Carbon Dioxide 28 mmol/L (22-29); Chloride 102 mmol/L (96-108); Creatinine Clr Calc Pharmacy 71.7; Estimated Glomerular Filt Rate > 60; Glucose Random 342 mg/dL (60-115); Sodium 139 mmol/L (135-145); Total Protein 7.9 g/dL (6.5-8.0)
--- NOTE | 2023-10-04 00:09 | ED.GENADULT ---
HPI - General Adult General Chief complaint: General Medical Stated complaint: right side groin pain Time Seen by Provider: 10/04/23 00:09 Source: patient Mode of arrival: ambulatory Limitations: no limitations History of Present Illness HPI narrative: Patient with no history of kidney stone been having pain in the right flank and last 1 week off today pain got worse no nausea no vomiting no hematuria no urinary complaints no fever or chills no penile discharge no testicular pain no relieving or exacerbating factors Related Data Previous Rx's ?Medication ?Instructions ?Recorded lactulose 20 gram oral packet 20 g PO DAILY constipation 3 days 09/12/21 #3 ea Allergies Allergy/AdvReac Type Severity Reaction Status Date / Time codeine [CODEINE] Allergy Unknown CONFUSION Verified 10/03/23 19:23 From PERCOCET Allergy Unknown CONFUSION Uncoded 03/08/20 15:06 Review of Systems Review of Systems: Yes all other systems are reviewed and are negative [facility] Social History Social History Smoked in Last 30 Days: No Use of substances other than those prescribed or required for medical reasons: No Advance Directives: No Advance Directives Information Provided: No Physical Exam ED Vital Signs: Vital Signs - 24 hr 10/03/23 19:20 10/04/23 00:10 Temperature 97.9 F 97.6 F Pulse Rate 90 82 Respiratory Rate 18 16 Blood Pressure 125/85 163/81 H Pulse Oximetry 97 98 Oxygen Delivery Method Room Air Room Air BMI result Body Mass Index 40.3 Appearance: Alert. Oriented X3. No acute distress. Eyes: No pallor or icterus ENT: Pharynx normal. Oral Mucosa moist Neck: Normal inspection. Neck supple. CVS: Normal heart rate and rhythm. Pulses normal. Respiratory: No respiratory distress. Equal air entry bilateral, no wheezing/rales/rhonchi Abdomen: Soft, deep tenderness right lower abdomen Bowel sounds are present, no mass palpable, no CVA tenderness : No hernia palpable testicle scrotum normal Skin: Skin warm and dry. Normal skin color. Normal skin turgor. Extremities: No lower extremity edema. No calf tenderness Neuro: Oriented X 3. Medical Decision Making Medical Decision Making MDM Narrative: Patient nonspecific right lower abdominal CBC normal signs of infection no hernia have a stone will get CT scan previous CT scan 2021 was negative Differential Diagnosis Differential Diagnoses: The differential diagnosis associated with the presentation includes Inguinal hernia abdominal wall hernia/constipation/UTI/kidney stone Lab Data MDM Lab Attestation statement: I reviewed the patient's lab results. 10/03/23 19:53 10/03/23 19:53 Labs: Lab Results 10/03/23 10/04/23 Range/Units 19:53 02:58 WBC 6.6 (4.8-10.8) X10*3/uL RBC 4.95 (4.60-5.80) X10*6/uL Hgb 14.8 (14.0-18.0) g/dl Hct 42.6 (42.0-52.0) % MCV 86.1 (80.0-98.0) fL MCH 29.9 (27.0-33.0) pg MCHC 34.7 (31.0-36.0) g/dl RDW 12.0 (11.0-16.0) % Plt Count 230 (160-400) X10*3/uL MPV 9.7 (9.4-12.4) fL Immature Gran % (Auto) 0.3 (0.0-0.4) % Neut % (Auto) 66.0 (45-73) % Lymph % (Auto) 25.9 (20-40) % [place] % (Auto) 5.6 (2-11) % Eos % (Auto) 1.4 (0-4) % Baso % (Auto) 0.8 (0-2) % Lymph # (Auto) 1.7 (1.2-4.9) X10*3/uL [place] # (Auto) 0.4 (0.1-1.2) X10*3/uL Eos # (Auto) 0.1 (0.0-0.4) X10*3/uL Baso # (Auto) 0.1 (0.0-0.2) X10*3/uL Abs Immat Gran (auto) 0.02 (0.00-0.03) X10*3/uL Absolute Neuts (auto) 4.4 (2.0-8.3) x10*3/uL Absolute Nucleated RBC 0.000 (0.0-0.012) X10*3/uL Nucleated RBC % (auto) 0.0 (0.0-0.2) /100WBC Sodium 139 (135-145) mmol/L Potassium 4.0 (3.3-5.1) mmol/L Chloride 102 (96-108) mmol/L Carbon Dioxide 28 (22-29) mmol/L Anion Gap 13 (12-20) BUN 21 H (9-16) mg/dL Creatinine 1.18 (0.5-1.4) mg/dL Estim Creat Clear Calc 71.7 Estimated GFR > 60 Random Glucose 342 H (60-115) mg/dL Calcium 9.7 (8.4-10.2) mg/dL Total Bilirubin 0.5 (0.0-1.0) mg/dL AST 17 (5-37) U/L ALT 22 (0-40) U/L Alkaline Phosphatase 60 (39-117) U/L Total Protein 7.9 (6.5-8.0) g/dL Albumin 4.3 (3.5-5.0) g/dL Urine Color Yellow Urine Appearance Clear Urine pH 6.0 (5.0-9.0) Ur Specific [place] >= 1.030 H (1.005-1.025) Urine Protein Negative (Neg-Trace) mg/dL Urine Glucose (UA) >=1000 H (Negative) mg/dL Urine Ketones 15 (Negative) mg/dL Urine Blood Negative (Negative) Urine Nitrite Negative (Negative) Ur Leukocyte Esterase Negative (Negative) Urine RBC 0-2 (0-2) /HPF Urine WBC 0-5 (0-5) /HPF Ur Squamous Epith Cells 0-2 (0-2) /HPF Urine Bacteria None Seen (None Seen) Hyaline Casts 0-2 (0-2) /LPF Independent Interpretation I performed an independent interpretation of an: CT Scan Radiology Impression Discussion of test interpretation with radiology: I have reviewed the radiologist's reading. Discharge Plan Discharge Clinical Impression: Abdominal pain Patient Disposition: Home, Self-Care Instructions: Abdominal Pain (ED) Additional Instructions: Pain is likely musculoskeletal CT scan negative for acute pathology Drink plenty of fluids avoid constipation Follow with PCP for diabetes Prescriptions: No Action lactulose 20 gram packet 20 g PO DAILY 3 Days Qty: 3 0RF Print Language: Citizen Of [place]
[2023-10-04 00:10] VITALS: BP 163/81; PULSE 82; RESP 16; TEMP 36.4; O2SAT 98
--- NOTE | 2023-10-04 00:12 | PC.NURSE ---
Pt ca&ox4, no signs of distress. Pt reports 8/10 RLQ pain that radiates to groin and right flank x 1 wk that has progressively gotten worse. Pt denies n/v and pain with urination. Provider with pt. Plan of care ongoing.
[2023-10-04 03:11] LABS: Appearance Urine Clear; Color Urine Yellow; Glucose Urine UA >=1000 mg/dL (Negative); Leukocyte Esterase Urine Negative (Negative); Nitrite Urine Negative (Negative); Specific Gravity - Urine >= 1.030 (1.005-1.025); UMIC TRIGGER UACC YES; Urine Blood Negative (Negative); Urine Ketones 15 mg/dL (Negative); Urine Protein Negative (Neg-Trace)
[2023-10-04 03:34] LABS: Bacteria Urine None Seen (None Seen); Hyaline Casts Urine 0-2 /LPF (0-2); RBC Urine 0-2 /HPF (0-2); Squamous Epithelial Cell Urine 0-2 /HPF (0-2); WBC Urine 0-5 /HPF (0-5)
[2023-10-04 03:53] VITALS: BP 158/82; PULSE 80; RESP 14; TEMP 36.4; O2SAT 97
== END 2023-10-04 03:55 | disposition home or self-care (01) ==
PROVIDERS: Emergency Provider Internal Medicine
DX: R10.9 Unspecified abdominal pain (principal); Z88.6 Allergy status to analgesic agent
CPT/HCPCS: 36415; 74176; 80053; 81001; 85025; 99284

== ENCOUNTER 2023-10-23 09:52 | Outpatient (REF) | payer MEDICARE, SELFPAY ==
[2023-10-23 11:43] LABS: Appearance Urine Clear; Color Urine Yellow; Glucose Urine UA >=1000 mg/dL (Negative); Leukocyte Esterase Urine Negative (Negative); Nitrite Urine Negative (Negative); PH 5.5 (5.0-9.0); Specific Gravity - Urine >= 1.030 (1.005-1.025); UMIC TRIGGER UACC YES; Urine Blood Negative (Negative); Urine Ketones Negative (Negative); Urine Protein Trace mg/dL (Neg-Trace)
[2023-10-23 11:46] LABS: Bacteria Urine None Seen (None Seen); Hyaline Casts Urine 0-2 /LPF (0-2); RBC Urine 0-2 /HPF (0-2); Squamous Epithelial Cell Urine 0-2 /HPF (0-2); WBC Urine 0-5 /HPF (0-5)
[2023-10-23 11:54] LABS: Estimated Average Glucose 235 mg/dL; Hemoglobin A1c % 9.8 % (<6.0)
[2023-10-23 12:27] LABS: Alanine Aminotransferase 29 U/L (0-40); Albumin Level 4.2 g/dL (3.5-5.0); Alkaline Phosphatase 66 U/L (39-117); Anion Gap 15 (12-20); Aspartate Amino Transferase 17 U/L (5-37); Bilirubin Total 0.3 mg/dL (0.0-1.0); Blood Urea Nitrogen 26 mg/dL (9-16); Calcium 9.6 mg/dL (8.4-10.2); Carbon Dioxide 26 mmol/L (22-29); Chloride 102 mmol/L (96-108); Cholesterol 218 mg/dL (<200); Estimated Glomerular Filt Rate > 60; Glucose Random 298 mg/dL (60-115); HDL Cholesterol 43 mg/dL (>40); LDL Cholesterol Calculated 151 mg/dL (<100); Potassium 3.9 mmol/L (3.3-5.1); Sodium 139 mmol/L (135-145); Total Protein 7.7 g/dL (6.5-8.0); Triglycerides 122 mg/dL (<150)
[2023-10-23 12:29] LABS: Creatinine Urine 96.27 mg/dL; Microalbum/Creatinine Ratio Ur 120.4 ug/mg cr (<30)
[2023-10-24 03:52] LABS: HIV AB/AG Nonreactive (Nonreactive); HIV Num 1 0.08 S/CO (0.00-0.99); ~HepC Num1 0.08 S/CO (0.00-0.79); ~Hepatitis C Antibody Nonreactive (Nonreactive)
== END 2023-10-23 09:53 | disposition home or self-care (01) ==
LOC: HO.HHCL 09:52
PROVIDERS: Visit Provider General Practice
DX: Z00.00 Encounter for general adult medical examination without abnormal findings (principal); Z11.4 Encounter for screening for human immunodeficiency virus [HIV]; E11.65 Type 2 diabetes mellitus with hyperglycemia; R10.31 Right lower quadrant pain; Z79.4 Long term (current) use of insulin
CPT/HCPCS: 36415; 80053; 80061; 81001; 82043; 82570; 83036; 86803; 87389

== ENCOUNTER 2024-06-03 10:38 | Outpatient (REF) | payer MEDICARE, SELFPAY ==
[2024-06-03 12:06] LABS: Alanine Aminotransferase 22 U/L (0-40); Alkaline Phosphatase 73 U/L (39-117); Anion Gap 11 (12-20); Aspartate Amino Transferase 17 U/L (5-37); Bilirubin Total 0.4 mg/dL (0.0-1.0); Blood Urea Nitrogen 27 mg/dL (9-16); Calcium 9.1 mg/dL (8.4-10.2); Carbon Dioxide 27 mmol/L (22-29); Chloride 102 mmol/L (96-108); Cholesterol 224 mg/dL (<200); Estimated Glomerular Filt Rate > 60; HDL Cholesterol 39 mg/dL (>40); LDL Cholesterol Calculated 144 mg/dL (<100); Potassium 4.1 mmol/L (3.3-5.1); Sodium 136 mmol/L (135-145); Total Protein 7.3 g/dL (6.5-8.0); Triglycerides 205 mg/dL (<150)
[2024-06-03 14:15] LABS: Glucose Random 439 mg/dL (60-115)
== END 2024-06-03 10:39 | disposition home or self-care (01) ==
LOC: HO.HHCL 10:38
PROVIDERS: Visit Provider General Practice
DX: E11.65 Type 2 diabetes mellitus with hyperglycemia (principal); Z79.4 Long term (current) use of insulin
CPT/HCPCS: 36415; 80053; 80061

== ENCOUNTER 2024-06-09 15:47 | Emergency (ER) | payer MEDICARE, SELFPAY ==
--- NOTE | ~2024-06-09 | CT_ITS ---
CLINICAL HISTORY: RLQ pain, nausea DLP: [address] of the abdomen and pelvis utilizing intravenous contrast. Comparison 10/04/2023. Findings: The liver and gallbladder are unremarkable. There is no hydronephrosis. The spleen is unremarkable. There is prominent pancreatic atrophy. No abdominal aortic aneurysm. Prominent coronary artery calcification is present. There is prominent stool in the colon. No diverticulitis is identified. The appendix is normal. There is no bowel obstruction. Mild mesenteric edema with small mesenteric lymph nodes likely incidental. There is moderate bladder distention. Mild prominence of the bladder wall is nonspecific. No free fluid is seen in the pelvis. There are prominent degenerative changes in the spine. Impression: Normal appendix. No diverticulitis or bowel obstruction. Moderate bladder distention. Mild bladder wall thickening is nonspecific but is typically seen as a result of outlet obstruction although mild cystitis is technically a possibility. Other findings as above. This document has been electronically signed by: Venkat Cedeno MD on 06/09/2024 17:47:25
[2024-06-09 15:56] VITALS: BP 149/82; BP 168/69; PULSE 72; PULSE 74; RESP 18; TEMP 36.4; O2SAT 94; O2SAT 98; BMI 28.7
--- NOTE | 2024-06-09 15:58 | ED.ABDPAIN ---
HPI - Abdominal Pain General Chief Complaint: Abdominal Pain Stated Complaint: ?Appendicitis Time Seen by Provider: 06/09/24 15:55 Source: patient and EMS Mode of arrival: EMS Limitations: no limitations History of Present Illness ED Provider: Mojgan Hernandez NP HPI narrative: Patient is a 63-year-old male who presents emergency department via EMS coming from [facility]. He was being evaluated there for follow-up on left lower extremity pain. Admits to a slip and in adult and donuts on 05/01/2024, was evaluated at an emergency room; [facility], had x-ray of the left hip and femur which were negative x-ray of the lumbar spine which revealed diffuse degenerative changes as per records from his primary care doctor's office. He reports the pain initially got better however later in the month of April he was experiencing pain to the left lower medial thigh/knee radiating into the quad. When he was being evaluated in office today he was complaining of pain to the right lower quadrant of his abdomen. He reports that this pain started at the same time as the pain in his left leg. He initially thought that the area on his abdomen was swollen after his fall, he thought that this was however due to his insulin injections therefore he started rotating the injections from this area. Pain has persisted, by his account it is constant in nature since its onset a few weeks ago, he is unable to describe the quality of it. Denies fevers, chills, chest pain, nausea, vomiting, hematemesis, diarrhea, constipation, hematochezia, melena, dysuria, urinary frequency, urinary urgency, urinary hesitancy, hematuria. Related Data Previous Rx's ?Medication ?Instructions ?Recorded lactulose 20 gram oral packet 20 g PO DAILY constipation 3 days 09/12/21 #3 ea Allergies Allergy/AdvReac Type Severity Reaction Status Date / Time codeine [CODEINE] Allergy Unknown CONFUSION Verified 06/09/24 16:03 From PERCOCET Allergy Unknown CONFUSION Uncoded 06/09/24 16:03 Review of Systems Review of Systems Yes all other systems are reviewed and are negative PMFSH Past Medical History Attestation statement: The following information was validated with the patient. Source: old records reviewed Social History Social History Smoked in Last 30 Days: No Use of substances other than those prescribed or required for medical reasons: No Advance Directives: No Advance Directives Information Provided: Yes Do you have a plan to hurt others: No Plan Physical Exam ED Vital Signs: Vital Signs - 24 hr 06/09/24 15:56 06/09/24 18:00 Temperature 97.5 F Pulse Rate 74 82 Respiratory Rate 18 18 Blood Pressure 149/82 H 152/84 H Pulse Oximetry 98 96 Oxygen Delivery Method Room Air Room Air BMI result Body Mass Index 28.7 Appearance: Alert.?Oriented to person, place and time. No acute distress.?Normal affect.?? Neck: Normal inspection.? Neck supple.?? CVS: Heart sounds normal. Normal heart rate and rhythm.? Pulses normal.?? Respiratory: No respiratory distress.? Lung sounds clear to auscultation bilaterally?? Abdomen: Soft with right lower quadrant tenderness upon palpation, positive rebound tenderness at McBurney's point. Negative psoas sign. Negative Rovsing sign. Negative Juarez sign. No CVAT. Normoactive bowel sounds. No pulsatile mass.?? Skin: Skin warm and dry.? Normal skin color.? Extremities: No lower extremity edema.? Pain to the left quadricep and left medial knee. 2+ DP/PT pulse. Neuro: Moves all extremities spontaneously. Sensation intact bilaterally. Ambulates with normal steady gait. Course Reevaluation(s) Reevaluation #1: CT abdomen and pelvis reveals normal appendix no diverticulitis or obstruction there is moderate bladder distention bladder wall thickening, urinalysis is not available at this time. I did discuss with patient stating urinalysis he does not feel the urge to void the will try. He denies any history of difficulty initiating stream, prostate difficulties Nursing staff will attempt to ambulate patient to the bathroom with the use of a walker and will assess gait. Time: 18:05 Reevaluation #2: Urinalysis without evidence of infection. Reported urinating without difficulty. Patient is provided with a walker by nursing staff, was ambulatory with a steady gait. Afterwards he was noted to be moving about the room without the use of the walker, seen bed sheets putting things away his personal belongings even bending over to pick something up off floor. I do not feel as though he would be criteria for short-term rehab, do not see indication for case management evaluation. Time: 19:08 Medical Decision Making Medical Decision Making [facility] Narrative: Patient is a 63-year-old male with past medical history of hypertension, hyperlipidemia, diabetes who presents emergency department for evaluation of right lower quadrant abdominal pain as per HPI. Onset was a few weeks ago and has been constant, having difficulty describing it is quality. However by his account has been present since his fall as per HPI. On examination he has notable tenderness in the right lower quadrant as well as rebound tenderness. He appears a bit fatigued on arrival by EMS however he did receive fentanyl pre arrival for pain 03/31, and he is endorsing nausea therefore he will be given Zofran. Will obtain CBC to evaluate for leukocytosis/ anemia, CMP and lipase to evaluate for abnormal electrolytes /abnormal renal function/ abnormal hepatic/biliary function, CT AP and Urinalysis. Differential Diagnosis Differential Diagnoses: The differential diagnosis associated with the presentation includes (See narrative above) No associated chest pain shortness of breath or URI symptoms to suggest pneumonia, no clinical evidence of DVT or personal history of VTE/malignancy to suggest pulmonary embolism. No chest pain or upper abdominal pain to suggest myocardial infarction, less likely AAA, aortic dissection. No upper abdominal tenderness upon palpation, negative Juarez sign, unlikely acute cholecystitis, choledocholithiasis, no fever or jaundice to suggest acute cholangitis, may possibly be biliary colic secondary to cholelithiasis. Denies associated acid reflux, no tenderness upon palpation over the epigastrium or left upper quadrant to suggest gastritis, no recent hematemesis history less likely to suggest PUD. Denies excessive alcohol consumption, lower suspicion acute pancreatitis. No tenderness of the left lower quadrant nor associated nausea, vomiting, diarrhea, constipation, hematochezia or melena to suggest diverticulitis or GI bleed. No appreciable hernia to suggest strangulation/incarceration. Lower suspicion for bowel obstruction. No distention or rigidity to suggest GI perforation. No associated genitourinary symptoms to suggest UTI/pyelonephritis, renal colic, hydronephrosis. Admission/Observation Consideration of admission/observation: Escalation of care including admission/observation considered (See narrative above ) Lab Data [facility] Lab Attestation statement: I reviewed the patient's lab results. CBC is without leukocytosis, has a mild normocytic anemia that does not meet transfusion criteria, no thrombocytopenia. No electrolyte derangement. No ISHA. LFTs and lipase are within normal range. 06/09/24 16:11 06/09/24 16:11 Labs: Lab Results 06/09/24 06/09/24 Range/Units 16:11 18:20 WBC 8.6 (4.8-10.8) X10*3/uL RBC 4.67 (4.60-5.80) X10*6/uL Hgb 13.9 L (14.0-18.0) g/dl Hct 41.0 L (42.0-52.0) % MCV 87.8 (80.0-98.0) fL MCH 29.8 (27.0-33.0) pg MCHC 33.9 (31.0-36.0) g/dl RDW 12.6 (11.0-16.0) % Plt Count 188 (160-400) X10*3/uL MPV 9.9 (9.4-12.4) fL Immature Gran % (Auto) 0.2 (0.0-0.4) % Neut % (Auto) 47.2 (45-73) % Lymph % (Auto) 43.5 H (20-40) % [place] % (Auto) 7.2 (2-11) % Eos % (Auto) 1.3 (0-4) % Baso % (Auto) 0.6 (0-2) % Lymph # (Auto) 3.7 (1.2-4.9) X10*3/uL [place] # (Auto) 0.6 (0.1-1.2) X10*3/uL Eos # (Auto) 0.1 (0.0-0.4) X10*3/uL Baso # (Auto) 0.1 (0.0-0.2) X10*3/uL Abs Immat Gran (auto) 0.02 (0.00-0.03) X10*3/uL Absolute Neuts (auto) 4.0 (2.0-8.3) x10*3/uL Absolute Nucleated RBC 0.000 (0.0-0.012) X10*3/uL Nucleated RBC % (auto) 0.0 (0.0-0.2) /100WBC PT 11.7 (10.9-12.4) SEC INR 1.0 (0.9-1.1) Sodium 140 (135-145) mmol/L Potassium 3.8 (3.3-5.1) mmol/L Chloride 103 (96-108) mmol/L Carbon Dioxide 26 (22-29) mmol/L Anion Gap 15 (12-20) BUN 16 (9-16) mg/dL Creatinine 0.92 (0.5-1.4) mg/dL Estim Creat Clear Calc 100.1 Estimated GFR > 60 Random Glucose 293 H (60-115) mg/dL Calcium 8.9 (8.4-10.2) mg/dL Total Bilirubin 0.4 (0.0-1.0) mg/dL AST 22 (5-37) U/L ALT 24 (0-40) U/L Alkaline Phosphatase 63 (39-117) U/L Total Protein 7.1 (6.5-8.0) g/dL Albumin 4.0 (3.5-5.0) g/dL Lipase 8 (8-78) U/L Urine Color Yellow Urine Appearance Clear Urine pH 6.5 (5.0-9.0) Ur Specific [place] >= 1.030 H (1.005-1.025) Urine Protein Negative (Neg-Trace) mg/dL Urine Glucose (UA) >=1000 H (Negative) mg/dL Urine Ketones Trace (Negative) mg/dL Urine Blood Negative (Negative) Urine Nitrite Negative (Negative) Ur Leukocyte Esterase Negative (Negative) Urine RBC 0-2 (0-2) /HPF Urine WBC 0-5 (0-5) /HPF Ur Squamous Epith Cells 0-2 (0-2) /HPF Urine Bacteria None Seen (None Seen) Hyaline Casts 0-2 (0-2) /LPF Radiology Impression Discussion of test interpretation with radiology: I have reviewed the radiologist's reading. Radiologist Impression: Impression: Normal appendix. No diverticulitis or bowel obstruction. Moderate bladder distention. Mild bladder wall thickening is nonspecific but is typically seen as a result of outlet obstruction although mild cystitis is technically a possibility. Other findings as above. Independent Historian Clinical information obtained from an independent historian. History obtained from or confirmed by: EMS External Record Review External record reviewed: Outpatient record (As per narrative above in HPI) Prescription Management I considered prescription management with: Pain Medication Chronic Conditions Patient?s care impacted by: Other (As per narrative above) Medications Administered Discontinued Medications Generic Name Dose Route Start Last Admin Trade Name Ofelia PRN Reason Stop Dose Admin Sodium Chloride 1,000 mls @ 999 mls/hr 06/09/24 16:15 06/09/24 16:21 Ns IV 06/09/24 17:15 999 mls/hr .Q1H1M KAITLYNN Administration Iohexol 85 ml 06/09/24 17:19 06/09/24 17:19 Iohexol 350 Mg/Ml 100 Ml Infus..Btl IV 06/09/24 17:20 85 ml ONCE ONE Administration Ondansetron HCl 4 mg 06/09/24 16:05 06/09/24 16:22 Ondansetron Hcl 4 Mg/2 Ml Vial IVPUSH 06/09/24 16:06 4 mg ONCE ONE Administration Discharge Plan Discharge Clinical Impression: Abdominal pain Patient Disposition: Home, Self-Care Instructions: Abdominal Pain (ED) Additional Instructions: As discussed, the CT scan of your abdomen is not reveal an obvious cause for the pain. Your urine test does not show evidence of infection. Your blood work is otherwise very reassuring. Please follow-up with your primary care doctor, return to emergency department any new or worsening symptoms or concerns. Prescriptions: No Action lactulose 20 gram packet 20 g PO DAILY 3 Days Qty: 3 0RF Referrals: Physician,None [Primary Care Provider] - Print Language: [place]
[2024-06-09 16:16] LABS: MANUAL DIFF FLAG NO
[2024-06-09 16:18] LABS: Basophils Absolute Auto 0.1 X10*3/uL (0.0-0.2); Basophils Percent Auto 0.6 % (0-2); Eosinophils Absolute Auto 0.1 X10*3/uL (0.0-0.4); Eosinophils Percent Auto 1.3 % (0-4); Hemoglobin 13.9 g/dl (14.0-18.0); Imm Gran Abs Auto 0.02 X10*3/uL (0.00-0.03); Imm Gran Pct Auto 0.2 % (0.0-0.4); Lymphocytes Absolute Auto 3.7 X10*3/uL (1.2-4.9); Lymphocytes Percent Auto 43.5 % (20-40); Mean Corpuscular HGB Conc 33.9 g/dl (31.0-36.0); Mean Corpuscular Hemoglobin 29.8 pg (27.0-33.0); Mean Corpuscular Volume 87.8 fL (80.0-98.0); Mean Platelet Volume 9.9 fL (9.4-12.4); Monocytes Absolute Auto 0.6 X10*3/uL (0.1-1.2); Monocytes Percent Auto 7.2 % (2-11); Neutrophils Percent Auto 47.2 % (45-73); Platelet Count 188 X10*3/uL (160-400); Red Blood Count 4.67 X10*6/uL (4.60-5.80); Red Cell Distribution Width 12.6 % (11.0-16.0); White Blood Count 8.6 X10*3/uL (4.8-10.8)
[2024-06-09] MEDS: 0.9 % Sodium Chloride 1,000 ML 999 ML IV (16:21)
[2024-06-09] MEDS: ondansetron HCL 4 MG/2 ML VIAL IVPUSH (16:22)
[2024-06-09 16:35] LABS: Prothrombin Time 11.7 SEC (10.9-12.4)
[2024-06-09 16:46] LABS: Alanine Aminotransferase 24 U/L (0-40); Alkaline Phosphatase 63 U/L (39-117); Anion Gap 15 (12-20); Aspartate Amino Transferase 22 U/L (5-37); Bilirubin Total 0.4 mg/dL (0.0-1.0); Blood Urea Nitrogen 16 mg/dL (9-16); Calcium 8.9 mg/dL (8.4-10.2); Carbon Dioxide 26 mmol/L (22-29); Chloride 103 mmol/L (96-108); Creatinine Clr Calc Pharmacy 100.1; Estimated Glomerular Filt Rate > 60; Glucose Random 293 mg/dL (60-115); Lipase 8 U/L (8-78); Potassium 3.8 mmol/L (3.3-5.1); Sodium 140 mmol/L (135-145); Total Protein 7.1 g/dL (6.5-8.0)
[2024-06-09] MEDS: iohexoL 350 MG/ML 100 ML INFUS..BTL 85 ML IV (17:19)
[2024-06-09 18:00] VITALS: BP 152/84; PULSE 82; RESP 18; O2SAT 96
[2024-06-09 18:28] LABS: Appearance Urine Clear; Color Urine Yellow; Glucose Urine UA >=1000 mg/dL (Negative); Leukocyte Esterase Urine Negative (Negative); Nitrite Urine Negative (Negative); PH 6.5 (5.0-9.0); Specific Gravity - Urine >= 1.030 (1.005-1.025); UMIC TRIGGER UACC YES; Urine Blood Negative (Negative); Urine Ketones Trace mg/dL (Negative); Urine Protein Negative (Neg-Trace)
[2024-06-09 18:33] LABS: Bacteria Urine None Seen (None Seen); Hyaline Casts Urine 0-2 /LPF (0-2); RBC Urine 0-2 /HPF (0-2); Squamous Epithelial Cell Urine 0-2 /HPF (0-2); WBC Urine 0-5 /HPF (0-5)
[2024-06-09 19:31] VITALS: BP 151/77; PULSE 83; RESP 16; TEMP 36.1; O2SAT 98
== END 2024-06-09 19:33 | disposition home or self-care (01) ==
PROVIDERS: Nurse Practitioner Family; Emergency Provider Emergency Medicine
DX: R10.31 Right lower quadrant pain (principal)
CPT/HCPCS: 36415; 74177; 80053; 81001; 83690; 85025; 85610; 96361; 96374; 99284; J2405; Q9967

== ENCOUNTER → 2024-06-09 16:06 | Outpatient (BNV) | payer MEDICARE, SELFPAY | PROVIDERS: Emergency Provider Emergency Medicine; Visit Provider Radiology Diagnostic Radiology | DX: R10.31 Right lower quadrant pain (principal) | CPT/HCPCS: 74177 ==

== ENCOUNTER 2024-08-03 12:08 | Outpatient (REF) | payer MEDICARE, SELFPAY ==
--- OUTSIDE RECORDS SUMMARY | 2024-08-03 13:47 | XMS_ITS | Encounter Summary ---
Author Organization [employer] Address [address] [facility] [address] [place] [address] Care Team Providers Care Third Helper Name Role Phone Emmie Pina MD Primary Care Provider [phone] Reason for Visit * Reason Comments sick visit Encounter Details Date Type Department Care Team (Latest Contact Info) Description 08/03/2024 11:30 AM EST Office Visit [facility] [address] [place], [place] [phone] Emmie Pina MD [address] [place], [place] [phone] Neuropathic pain of left lower extremity (Primary Dx); Type 2 diabetes mellitus with hyperglycemia, with long-term current use of insulin ([facility]/HCC); Depression, recurrent (CMS/HCC); Class 2 severe obesity due to excess calories with serious comorbidity and body mass index (BMI) of 37.0 to 37.9 in adult (CMS/HCC); Dietary counseling; Exercise counseling; Disorders of muscle in diseases classified elsewhere, left lower leg; Encounter for screening for infections with a predominantly sexual mode of transmission Social History Tobacco Use Types Packs/Day Years Used Date Smoking Tobacco: Former Cigarettes Q uit: 1982 Smokeless Tobacco: Never Tobacco Cessation:Counseling Given: Not Answered Alcohol Use Standard Drinks/Week Comments Not Currently 0 (1 standard drink = 0.6 oz pur e alcohol) Depression Answer Date Recorded Patient Health Questionnaire-9 Score 7 10/23/2023 Patient Health Questionnaire-9 Score 7 10/23/2023 Last PHQ-9: Questionnaire Data Not on file 0 10/23/2023 Housing Stability Answer Date Recorded What is your housing situation today? I have neil hylton 10/16/[address] you li ve. Do you have problems with any of the following? None of the above 10/16/2023 Food Insecurity Answer Date Recorded Within the past 12 months, y ou worried that your food would run out before you got money to buy more: Never True 10/16/2023 Within the past 12 months,th e food you bought just didn't last and you didn't have enough money to get more: Never True Transportation Answer Date Recorded In the past 12 months, has l ack of transportation kept you from medical appts, meetings, work or from getting things needed for daily living? No 10/16/2023 Utilities Answer Date Recorded In the past 12 months, has t he electric, gas, oil or water company threatened to shut off services in your home? No 10/16/2023 Depression Answer Date Recorded Patient Health Questionnaire-2 Score 2 10/23/2023 Sex and Gender Information Value Date Recorded Sex Assigned at Male 04/21/2022 10:15 AM EDT Legal Sex Male 10:15 AM EDT Gender Identity Male 04/21/2022 10:15 AM EDT Sexual Orientation Straight 04/21/2022 10 :15 AM EDT documented as of this encounter Last Filed Vital Signs Vital Sign Reading Time Taken Comments Blood Pressure 137/84 08/03/2024 11:29 AM EST Pulse 88 08/03/2024 11:29 AM EST Temperature 37.1 ??C (98.7 ??F) 08/03/2024 1 1:29 AM EST Respiratory Rate 20 08/03/2024 11:2 9 AM EST Oxygen Saturation 98% 08/03/2024 11: 29 AM EST Inhaled Oxygen Concentration - - Weight 97.9 kg (215 lb 12.8 oz) 025 11:29 AM EST Height 162.6 cm (5' 4 ) 08/03/2024 11:2 9 AM EST Body Mass Index 37.04 08/03/2024 11:29 AM EST documented in this encounter Progress Notes * Emmie Pina MD - 08/03/2024 11:30 AM EST SUBJECTIVE: Juan Rodrigez is a 63 y.o. year old male who presents for ER followup . Acute Concerns: ER visit [facility] 07/06/24 for LE pain, DVT neg, CK normal, still with pain starting in the groin, radiating to the L knee. Limited range of motion. Feels throbbing/pulsing/radiating. Remote history of syphilis, will recheck RPR, TSH, and Vit B12. Interim Updates: Subjective hearing loss referral to audiology 05/21/24 sent as he would like to wear hearing aids if he qualifies for them HTN At goal today, asymptomatic On Lisinopril 40mg The 10-year ASCVD risk score (Al BUSTOS, et al., 2019) is: 30.1% Values used to calculate the score: Age: 63 years Sex: Male Is Non- : No Diabetic: Yes Tobacco smoker: No Systolic Blood Pressure: 137 mmHg Is BP treated: Yes HDL Cholesterol: 39 mg/dL Total Cholesterol: 224 mg/dL DM2 A1C 10.8, glucose 209 Still needs fast acting insulin Obesity No particular actions Depression Lost his one year ago Has had few sessions with , does not want to call them again Questioning whether he is having hallucinations about the itching and things moving over his skin but cannot distinguish Health Maintenance STI- denies sexual activity and declines screening Colon- last done in 2013, DUE PSA- shared decision making 55-69 Imms- declines Latest Reference Range & Units 06/03/24 10:41 Glucose 60 - 115 mg/dL 439 (HH) Urea Nitrogen (BUN) 9 - 16 mg/dL 27 (H) Creatinine, Serum 0.5 - 1.4 mg/dL 1.10 Sodium 135 - 145 mmol/L 136 Potassium 3.3 - 5.1 mmol/L 4.1 Chloride 96 - 108 mmol/L 102 Carbon Dioxide 22 - 29 mmol/L 27 Calcium 8.4 - 10.2 mg/dL 9.1 Albumin Level 3.5 - 5.0 g/dL 4.0 Bilirubin, Total 0.0 - 1.0 mg/dL 0.4 AST 5 - 37 U/L 17 ALT 0 - 40 U/L 22 Anion Gap 12 - 20 11 (L) Total Protein 6.5 - 8.0 g/dL 7.3 Cholesterol <200 mg/dL 224 (H) HDL Cholesterol >40 mg/dL 39 (L) LDL Cholesterol Calculated <100 mg/dL 144 (H) Triglycerides <150 mg/dL 205 (H) Alkaline Phosphatase 39 - 117 U/L 73 Estimated Glomerular Filt Rate >60 Patient Active Problem List Diagnosis Dizziness Hypertension Impotence of organic origin Class 2 severe obesity due to excess calories with serious comorbidity and body mass index (BMI) of36.0 to 36.9 in adult ([facility]) Obstructive sleep apnea syndrome Pure hypercholesterolemia Type 2 diabetes mellitus ([facility]/HCC) Anxiety and depression Adjustment insomnia Depression, recurrent ([facility]) Right lower quadrant pain Vitamin D insufficiency 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 No pertinent surgical history. No family history on file. Social History Social History Narrative Not on file Review of Systems Constitutional: Negative. Respiratory: Negative. Cardiovascular: Negative. Gastrointestinal: Negative. Musculoskeletal: Positive for arthralgias and myalgias. Skin: Negative. Psychiatric/Behavioral: Negative. OBJECTIVE: Vitals: 08/03/24 1129 BP: 137/84 BP Location: Left arm Patient Position: Sitting BP Cuff Size: Large adult Pulse: 88 Resp: 20 Temp: 98.7 ??F (37.1 ??C) TempSrc: Temporal SpO2: 98% Weight: 215 lb 12.8 oz (97.9 kg) Height: 5' 4 (1.626 m) Physical Exam Vitals and nursing note reviewed. Constitutional: Appearance: Normal appearance. He is normal weight. HENT: Head: Normocephalic and atraumatic. Right Ear: Tympanic membrane, ear canal and external ear normal. Left Ear: Tympanic membrane, ear canal and external ear normal. Nose: Nose normal. Mouth/Throat: Mouth: Mucous membranes are moist. Pharynx: Oropharynx is clear. Cardiovascular: Rate and Rhythm: Normal rate and regular rhythm. Pulses: Normal pulses. Heart sounds: Normal heart sounds. Pulmonary: Effort: Pulmonary effort is normal. Breath sounds: Normal breath sounds. Musculoskeletal: General: Tenderness present. Cervical back: Normal range of motion and neck supple. Left hip: Tenderness and bony tenderness present. No crepitus. Decreased range of motion. Normal strength. Left knee: Decreased range of motion. Skin: General: Skin is warm and dry. Capillary Refill: Capillary refill takes less than 2 seconds. Neurological: General: No focal deficit present. Mental Status: He is alert and oriented to person, place, and time. Psychiatric: Mood and Affect: Mood normal. Behavior: Behavior normal. ASSESSMENT/PLAN Problem List Items Addressed This Visit Type 2 diabetes mellitus ([facility]) Relevant Orders POCT HGB A1C (Completed) POCT Glucose (Completed) Depression, recurrent ([facility]) Other Visit Diagnoses Neuropathic pain of left lower extremity - Primary Relevant Orders TSH W/Reflex to FT4 Vitamin B12/Folate, Serum Panel RPR (Monitor) with Reflex to Titer XR Hip 2 or 3 Views Left Class 2 severe obesity due to excess calories with serious comorbidity and body mass index (BMI) of37.0 to 37.9 in adult ([facility]) Dietary counseling Exercise counseling Disorders of muscle in diseases classified elsewhere, left lower leg Relevant Orders TSH W/Reflex to FT4 Encounter for screening for infections with a predominantly sexual mode of transmission Relevant Orders RPR (Monitor) with Reflex to Titer Follow Up: 4 months or sooner prn Allergies Allergen Reactions Codeine Other reaction(s): vertigo Current Outpatient Medications: albuterol (Ventolin HFA) 108 (90 Base) MCG/ACT inhaler, Inhale 2 puffs every 4 (four) hours if needed for wheezing., Disp: 18 g, Rfl: 11 aspirin 81 MG EC tablet, Take 1 tablet (81 mg) by mouth Once per day., Disp: 90 tablet, Rfl: 3 atorvastatin (Lipitor) 80 MG tablet, Take 1 tablet (80 mg) by mouth Once per day., Disp: 90 tablet,Rfl: 3 cholecalciferol (Vitamin D-3) 50 MCG (2000 UT) capsule, Take 1 capsule by mouth every morning, Disp: 90 capsule, Rfl: 3 Continuous Glucose Big Data Platform Architect (FreeStyle Nova 14 Day [place]) device, 14 day nova reader, See Instructions, # 1 each, Refills 0, Tot. Refills 0, Maintenance, E11.9: For testing glucose levels: [facility] [place] 2[place] [id number], 09/05/21 9:09:00 EDT, Compound, Disp: , Rfl: Continuous Glucose Sensor (FreeStyle Nova 14 Day Sensor) misc, 14 day nova sensor, See Instructions, # 2 each, Refills 11, Tot. Refills 11, Maintenance, E 11.9: for testing glucose lev els. [facility] [place]NOTE 2] [id number], 09/05/21 9:11:00 EDT, Compound, Disp: , Rfl: cyclobenzaprine (Flexeril) 10 MG tablet, One tab po at bedtime prn pain of muscles, do not drive with medicaion, Disp: 30 tablet, Rfl: 0 Dulaglutide 0.75 MG/0.5ML solution auto-injector, Inject 0.5 mL (0.75 mg) under the skin 1 (one) time per week., Disp: 2 mL, Rfl: 6 fluticasone (Flovent HFA) 110 MCG/ACT inhaler, Inhale 1 puff every 12 (twelve) hours., Disp: 12 g, Rfl: 11 gabapentin (Neurontin) 300 MG capsule, Take 1 capsule (300 mg) by mouth if needed in the morning, at noon, and at bedtime (pain in nerves)., Disp: 90 capsule, Rfl: 11 glucose blood (FREESTYLE LITE) test strip, every 8 (eight) hours., Disp: , Rfl: insulin aspart FlexPen (NovoLOG) 100 UNIT/ML pen, Inject 6-12 Units under the skin with breakfast, with lunch, and with evening meal. INJECT 6 UNITS SUBCUTANEOUSLY EVERY DAY WITH BREAKFAST, 6 UNITS EVERY DAY WITH LUNCH, AND 12 UNITS EVERY DAY WITH DINNER Strength: 100 UNIT/ML, Disp: 15 mL, Rfl: 10 insulin glargine (Basaglar KwikPen) 100 UNIT/ML pen, inject 55 units by subcutaneous route every day at hs, Disp: 10 mL, Rfl: 11 lisinopril 40 MG tablet, TAKE 1 TABLET BY MOUTH EVERY MORNING, Disp: 90 tablet, Rfl: 3 metFORMIN (Glucophage) 500 MG tablet, Take 1 tablet (500 mg) by mouth every 12 (twelve) hours., Disp: 180 tablet, Rfl: 3 OLANZapine (ZyPREXA) 2.5 MG tablet, Take 1 tablet (2.5 mg) by mouth at bedtime. For itching, Disp: 30 tablet, Rfl: 2 omeprazole (PriLOSEC) [address] capsule, TAKE 1 CAPSULE BY MOUTH EVERY DAY AT NOON, Disp: 90 capsule, Rfl: 0 triamcinolone (Kenalog) 0.1 % cream, Apply topically if needed in the morning and at bedtime for rash., Disp: 30 g, Rfl: 3 Maltese Translation: Provided by [facility] staff member ANTONETTE Lopes documented in this encounter Plan of Treatment Scheduled Orders Name Type Priority Associated Diagnoses Orde r Schedule TSH W/Reflex to FT4 Lab Routine Neuropathic pain of left lower extremity Disorders of muscle in diseases classified elsewhere, left lower leg Expected: 08/03/2024 (Approximate), Expires: 08/03/2025 Vitamin B12/Folate, Serum Panel Lab Routine Neuropathic pain of left lower extremity Expected: 08/03/2024, Expires: 08/03/2025 RPR (Monitor) with Reflex to??Titer Lab Routine Neuropathic pain of left lower extremity Encounter for screening for infections with a predominantly sexual mode of transmission Expected: 08/03/2024, Expires: 08/03/2025 XR Hip 2 or 3 Views Left Imaging Routine Neuropathic pain of left lower extremity Expected: 08/03/2024, Expires: 08/03/2025 documented as of this encounter Procedures Procedure Name Priority Date/Time Associated Diagnosis Comments POCT GLYCATED HEMOGLOBIN, TOTAL Routine 08/03/2024 11:31 AM EST Type 2 diabetes mellitus with hyperglycemia, with long-term current use of insulin ([facility]) POCT GLUCOSE Routine 08/03/2024 11:31 AM EST Type 2 diabetes mellitus with hyperglycemia, with long-term current use of insulin ([facility]) documented in this encounter Results * (ABNORMAL) POCT Glucose (08/03/2024 11:31 AM EST) Glucose Blood, POC 209(A) 60 - 200 mg/dL QC Media Lot # [id number] Lot# Expiration Date Blood Capillary blood specimen / Unknown 08/03/2024 11:31 AM EST Emmie Pina MD POINT OF CARE TEST ENTER/EDIT ORDERABLES Final Result * (ABNORMAL) POCT HGB A1C (08/03/2024 11:31 AM EST) Hemoglobin A1C 10.8(A) 4.0 - 6.0 % QC Media Lot # [id number] Lot# Expiration Date ,026 Blood 08/03/2024 11:3 1 AM EST Emmie Pina MD POINT OF CARE TEST ENTER/EDIT ORDERABLES Final Result documented in this encounter Visit Diagnoses Diagnosis Neuropathic pain of left lower extremity- Primary Type 2 diabetes mellitus with hyperglycemia, with long-term current use of insulin ([facility]) Depression, recurrent ([facility]) Major depressive disorder, recurrent episode, unspecified Class 2 severe obesity due to excess calories with serious comorbidity and body mass index (BMI) of 37.0 to 37.9 in adult ([facility]) Dietary counseling Dietary surveillance and counseling Exercise counseling Disorders of muscle in diseases classified elsewhere, left lower leg Encounter for screening for infections with a predominantly sexual mode of transmission documented in this encounter Additional Health Concerns Assessment Noted Time PHQ-9 Depression Total Score: 7 10/23/19 24 9:18 AM EDT documented as of this encounter Care Teams Third Helper Relationship Specialty Start Date End Date Emmie Pina MD [address] [place] [id number] PCP - General Family Medicine 10/23/23 documented as of this encounter
--- OUTSIDE RECORDS SUMMARY | 2024-08-03 13:47 | XMS_ITS | Encounter Summary ---
Author Organization [employer] Address [address] [facility] 7[address] [place] [address] Care Team Providers Care Community Service Manager Name Role Phone Emmie Pina MD Primary Care Provider [phone] Reason for Visit * Reason Onset Date Comments ER Follow-up 08/01/2024 Encounter Details Date Type Department Care Team ([facility] st Contact Info) Description 08/01/2024 Telephone [facility] [address] [place], [place] [phone] Emmie Pina MD [address] [place], [place] [phone] ER Follow-up Social History Tobacco Use Types Packs/Day Years Used Date Smoking Tobacco: Former Cigarettes Q uit: 1983 Smokeless Tobacco: Never Alcohol Use Standard Drinks/Week Comments Not Currently [...] AM EDT documented as of this encounter Miscellaneous Notes * Telephone Encounter - Monique Tinoco RN - 08/01/2024 3:49 PM EST Call returned to Juan Rodrigez to triage below. Confirms being seen at [facility] for [place] pain. Last note found for date of 07/04/24. Pt had xray for knee and hip. WNL. Pain not reproducible with ROM. No swelling. US negative for DVT. Pt advised to continue gabapentin and rx for lidoderm patches given. Pt states using with mild relief. Pt states pain still the same, mildy worse x 1 week. No swelling, redness, rash or bruising. Pt advised of disposition, agrees to sick on site with PCP within 2 days for follow up. Reviewed home care advise, ER precautions and reasons to call back. Protocol Used: Leg Pain (Adult) Protocol-Based Disposition: See in Office or Video Visit within 2 Weeks Future Appointments Date Time Provider Department Center 08/03/2024 11:30 AM Emmie Pina MD MEDICINE [facility] Insurance verified as active per Real Time Eligibility in [facility]. Video visit offer not recorded Positive Triage Question: * Leg pain or muscle cramp is a chronic symptom (recurrent or ongoing AND lasting > 4 weeks) * All higher-acuity triage questions were negative Care Advice Discussed: * Reassurance and Education - Leg Pain * Pain Medicines * Reasons To Call Back - Moderate pain (such as limping) lasts more than 3 days - Signs of infection occur (such as spreading redness, warmth, fever) - You become worse * Telephone Encounter - Biju Marcelino - 08/01/2024 3:13 PM EST Patient calling to report ED visit on : Date: 07/23/2024 Hospital: [facility] Seen for: Leg Problems Symptomatic Yes *if yes message should go to Triage Patient advised will forward to team nurse for follow up documented in this encounter Plan of Treatment Not on file documented as of this encounter Visit Diagnoses Not on filedocumented in this encounter Additional Health Concerns Assessment Noted Time PHQ-9 Depression Total Score: 7 10/23/19 24 9:18 AM EDT documented as of this encounter Care Teams Community Service Manager Relationship Specialty Start Date End Date Emmie Pina MD [address] [place] [address] PCP - General Family Medicine 10/23/23 documented as of this encounter
--- OUTSIDE RECORDS SUMMARY | 2024-08-03 13:47 | XMS_ITS | Encounter Summary ---
Author Organization [employer] Address [address] [facility] 7[address] [place] [address] Care Team Providers Care Set Up Person Name Role Phone Sury Phillips Primary Care Provider [phone] Emmie Pina MD Primary Care Provider [phone] Reason for Visit * Reason Onset Date Comments triage 07/31/2022 Encounter Details Date Type Department Care Team (Late st Contact Info) Description 07/31/2022 Telephone [facility] [address] [place] [address] Sury Phillips FNP [address] [place] [address] triage Social History Tobacco Use Types Packs/Day Years Used Date Smoking Tobacco: Never Assessed Depression Answer Date Recorded Patient Health Questionnaire-9 Score 18 08/01/2022 Depression Answer Date Recorded Patient Health Questionnaire-2 Score 6 08/01/2022 Sex and Gender Information Value Date Recorded Sex Assigned at Male 04/21/2022 10:15 AM EDT Legal Sex Male 10:15 AM EDT Gender Identity Male 04/21/2022 10:15 AM EDT Sexual Orientation Straight 04/21/2022 10 :15 AM EDT COVID-19 Exposure Response Date Recorded In the last 10 days, have yo u been in contact with someone who was confirmed or suspected to have Coronavirus/COVID-19? No / Unsure 08/01/2022 10:44 AM EST documented as of this encounter Miscellaneous Notes * Telephone Encounter - Sharona Salomon RN - 07/31/2022 4:06 PM EST Called pt. Via [employer] educational sign language interpreter Karma [id number]. Health Services Manager called both provided numbers 2 x and got messages that there is an error when trying to dial . Health Services Manager put me through to a new educational sign language interpreter in case it was a bad connection on her part. New educational sign language interpreter Elizabeth [phone] called [phone] and pt. Answered phone. Pt. States that he has been having trouble sleeping due to his 's passing. Pt. Is very depressed and wants to start getting therapy. He states he just lies awake at night crying for her and he has family members stay withhim at night to talk. Decreased appetite. Pt. States I have not slept in 4 days . Pt. Denies thoughts of suicide or self harm but states I just don't know how to go on without my . Denies need at present for immediate intervention as he states I have cousins and other family members that Ican talk to but I need further support now . Appt. Made for 08/01/22 at 1045am with PCP Alan. Will send this note so that a [facility] clinician can bepresent at office visit and Services can be initiated at appt. Along with referrals from PCP and possible medication management. Protocol Used: Depression (Adult) Protocol-Based Disposition: See in Office or Video Visit within 3 Days Video visit not offered Positive Triage Questions: * Depression is worsening (e.g.,sleeping poorly, less able to do activities of daily living) * Requesting to talk with a counselor (mental health worker, psychiatrist, etc.) * Patient wants to be seen * Recent of a loved one * All higher-acuity triage questions were negative Care Advice Discussed: * Note to Triager - Depression * Depression - Symptoms * Depression - Causes * Note to Triager - Grief After the of a Loved One * Note to Triager - Phrases to Use or Avoid * Telephone Encounter - Mariusz Currie - 07/31/2022 12:13 PM EST Symptoms: Anxiety or Panic Attack, Depression Outcome: Schedule an urgent appointment (within 4 hours) or talk to a nurse or provider soon Reason: Getting worse The caller accepted this outcome pt requesting a phycologist referral pt speaks armenian documented in this encounter Plan of Treatment Not on file documented as of this encounter Visit Diagnoses Not on filedocumented in this encounter Care Teams Set Up Person Relationship Specialty Start Date End Date Sury Phillips FNP [address] [place] [address] PCP - General Family Medicine 05/08/22 01/07/23 Emmie Pina MD [address] [place] [address] PCP - General Family Medicine 10/23/23 documented as of this encounter
--- OUTSIDE RECORDS SUMMARY | 2024-08-03 13:47 | XMS_ITS | Encounter Summary ---
Author Organization [employer] Address [address] [facility] [address] [place] [address] Care Team Providers Care Carbon Setter Name Role Phone Sury Phillips Primary Care Provider [phone] Emmie Pina MD Primary Care Provider [phone] Reason for Visit * Reason Onset Date Comments new script 12/04/2022 Encounter Details Date Type Department Care Team ([facility] st Contact Info) Description 12/04/2022 Telephone [facility] [address] [place] [address] Sury Phillips FNP [address] [place] [address] new script Social History Tobacco Use Types Packs/Day Years [...] encounter Miscellaneous Notes * Telephone Encounter - Kaia Grady RN - 12/12/2022 4:36 PM EDT Noted. Pt agreed to f/u visit on 12/24/22. * Telephone Encounter - Kaia Grady RN - 12/04/2022 3:08 PM EDT Please review message below regarding CGM. Pt requesting Dexcom. Unsure if that is covered by insurance? * Telephone Encounter - Dante Quinteros - 12/04/2022 2:50 PM EDT Tc from pt requesting a glucose meter called Dexcom six, not other that goes on arm due to fallen off often. Please contact pt at [phone] * Telephone Encounter - Jose J Gray - 12/04/2022 2:38 PM EDT Tc from pt requesting a new script for a glucose meter , states current one is not working. Please contact at [phone] Kiswahili documented in this encounter Plan of Treatment Not on file documented as of this encounter Visit Diagnoses Not on filedocumented in this encounter Additional Health Concerns Assessment Noted Time PHQ-9 Depression Total Score: 18 023 10:57 AM EST documented as of this encounter Care Teams Carbon Setter Relationship Specialty Start Date End Date Sury Phillips FNP [address] [place] [address] PCP - General Family Medicine 05/08/22 01/07/23 Emmie Pina MD [address] [place] [address] PCP - General Family Medicine 10/23/23 documented as of this encounter
--- OUTSIDE RECORDS SUMMARY | 2024-08-03 13:47 | XMS_ITS | Encounter Summary ---
Author Organization [employer] Address [address] [place] [address] Care Team Providers Care Hat Designer Name Role Phone Emmie Pina MD Primary Care Provider [phone] Reason for Visit * Reason Onset Date Comments No show 07/12/2024 Encounter Details Date Type Department Care Team (Late st Contact Info) Description 07/12/2024 Telephone [facility] [address], [place] [phone] [place] No show Social History Tobacco Use Types Packs/Day Years [...] encounter Miscellaneous Notes * Telephone Encounter - Marianne Martinez [place] - 07/12/2024 3:58 PM EST T/c placed to check on pt and rs appt. Unable to rs or speak w/pt due to both numbers on file not being in srv documented in this encounter Plan of Treatment Not on file documented as of this encounter Visit Diagnoses Not on filedocumented in this encounter Additional Health Concerns Assessment Noted Time PHQ-9 Depression Total Score: 7 10/23/19 9:18 AM EDT documented as of this encounter Care Teams Hat Designer Relationship Specialty Start Date End Date Emmie Pina MD [address] [place] [address] PCP - General Family Medicine 10/23/23 documented as of this encounter
--- OUTSIDE RECORDS SUMMARY | 2024-08-03 13:47 | XMS_ITS | Clinical Summary ---
Author Organization [employer] Address [address] [facility] [address] [place] [address] Care Team Providers Care Specialty Sales Consultant Name Role Phone Emmie Pina MD Primary Care Provider [phone] Allergies Active Allergy Reactions Criticality Noted Date Comments Codeine 04/16/2012 Other reaction(s): vertigo Medications * This document contains information received from the source organization and may not represent a complete record from that organization. glucose blood (FREESTYLE LITE) test strip every 8 (eight) hours. 022 Active omeprazole (PriLOSEC) [address] capsule TAKE 1 CAPSULE BY MOUTH EVERY DAY AT NOON 90 capsule 023 Active albuterol (Ventolin HFA) 108 (90 Base) MCG/ACT inhaler Inhale 2 puffs every 4 (four) hours if needed for wheezing. 18 g 11 024 Active cholecalciferol (Vitamin D-3) 50 MCG (2000 UT) capsuleIndicatio ns:Vitamin D insufficiency Take 1 capsule by mouth every morning 90 capsule 3 024 Active triamcinolone (Kenalog) 0.1 % cream Apply topically if needed in the morning and at bedtime for rash. 30 g 3 024 Active insulin glargine (Basaglar KwikPen) 100 UNIT/ML pen inject 55 units by subcutaneous route every day at hs 10 mL 11 024 Active lisinopril 40 MG tablet TAKE 1 TABLET BY MOUTH EVERY MORNING 90 tablet 3 024 Active Dulaglutide 0.75 MG/0.5ML solution auto-injector Inject 0.5 mL (0.75 mg) under the skin 1 (one) time per week. 2 mL 6 Active fluticasone (Flovent HFA) 110 MCG/ACT inhaler Inhale 1 puff every 12 (twelve) hours. 12 g 11 Active metFORMIN (Glucophage) 500 MG tablet Take 1 tablet (500 mg) by mouth every 12 (twelve) hours. 180 tablet 3 Active atorvastatin (Lipitor) 80 MG tablet Take 1 tablet (80 mg) by mouth Once per day. 90 tablet 3 Active aspirin 81 MG EC tablet Take 1 tablet (81 mg) by mouth Once per day. 90 tablet 3 Active OLANZapine (ZyPREXA) 2.5 MG tablet Take 1 tablet (2.5 mg) by mouth at bedtime. For itching 30 tablet 2 024 2024 Active Continuous Glucose Blanker Press Operator (FreeStyle Nova 14 Day [place]) device 14 day nova reader, See Instructions, # 1 each, Refills 0, Tot. Refills 0, Maintenance, E11.9: For testing glucose levels: [facility] [address]-12, 09/05/21 9:09:00 EDT, Compound Active Continuous Glucose Sensor (FreeStyle Nova 14 Day Sensor) misc 14 day nova sensor, See Instructions, # 2 each, Refills 11, Tot. Refills 11, Maintenance, E 11.9: for testing glucose lev els. [facility] [id number], 09/05/21 9:11:00 EDT, Compound Active cyclobenzaprine (Flexeril) 10 MG tabletIndication s:Muscle spasm One tab po at bedtime prn pain of muscles, do not drive with medicaion 30 tablet Active insulin aspart FlexPen (NovoLOG) 100 UNIT/ML pen Inject 6-12 Units under the skin with breakfast, with lunch, and with evening meal. INJECT 6 UNITS SUBCUTANEOUSLY EVERY DAY WITH BREAKFAST, 6 UNITS EVERY DAY WITH LUNCH, AND 12 UNITS EVERY DAY WITH DINNER Strength: 100 UNIT/ML 15 mL 10 025 2025 Active gabapentin (Neurontin) 300 MG capsule Take 1 capsule (300 mg) by mouth if needed in the morning, at noon, and at bedtime (pain in nerves). 90 capsule 11 025 2025 Active insulin lispro (HumaLOG) 100 UNIT/ML injection INJECT 6 UNITS SUBCUTANEOUSLY EVERY DAY WITH BREAKFAST, 6 UNITS EVERY DAY WITH LUNCH, AND 12 UNITS EVERY DAY WITH DINNER 15 mL 7 024 2024 Discontinued(R eorder (will not trigger notification to Pharmacy)) Active Problems Problem Noted Date Diagnosed Date Acute right lower quadrant pain 06/09/2024 Assessment & Plan (06/09/2024 3:22 PM EST): History and physical concerning for acute appendicitis. + rebound, no guarding. Unable to reliably follow up for status check due to lack of transportation. Pt agrees to go to ER and would like to go via ambulance due to no transportation. Muscle spasm 06/09/2024 Overview (06/09/2024): Quadriceps muscle spasm. No focal motor neuro deficits. [place] muscle relaxer, rest, crutches given. Return is symptoms worsen or do not improve. Assessment & Plan (06/09/2024 3:21 PM EST): Quadriceps muscle spasm. No focal motor neuro deficits. [place] muscle relaxer, rest, crutches given. Return is symptoms worsen or do not improve. 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 05/16/2024 Depression, recurrent 10/23/2023 Right lower quadrant pain 10/23/2023 Assessment & Plan (10/23/2023 3:06 PM EDT): Unclear etiology, non surgical on exam, will recheck CMP, urine Vitamin D insufficiency 10/23/2023 Anxiety and depression 08/01/2022 Adjustment insomnia 08/01/2022 Dizziness 02/01/2018 Obstructive sleep apnea syndrome 05/04/2013 Chronic mixed headache syndrome 11/09/2012 Syphilis 11/09/2012 Hypertension 12/09/2011 Assessment & Plan (10/23/2023 3:07 PM EDT): Maintenance: restart Lisinopril 40mg BMP: Cr 1.1, eGFR >60 Lipid Panel: today ASCVD Risk: Calculate pending updated labs EKG: Obtain baseline at f/u - Aerobic exercise to reduce BP. Initial goal of 30 min walk 3-5x/week. Increase as tolerated. - low-sodium diet (goal: <2g/day) and heart healthy diet such as DASH to reduce BP and prevent ASCVD. - Home BP monitoring 1-2 x day with goal of <140/90. - Seek immediate medical attention for chest pain, palpitations, SOB, syncope, or sudden changes in mental status. - Do not change or discontinue current prescriptions without first consulting health care provider Class 2 severe obesity due t o excess calories with serious comorbidity and body mass index (BMI) of 36.0 to 36.9 in adult 12/09/2011 Impotence of organic origin 11/06/2011 Pure hypercholesterolemia 10/07/2011 Type 2 diabetes mellitus 10/07/2011 Assessment & Plan (05/21/2024 7:21 PM EST): Current A1c: 13.7, patient non-compliant with his medications for several months at least. He does not view this as a problem, so will not titrate medications or refer to CDTM because the first step in treatment needs to be adherence to treatment plan and removal of barriers to this. It is difficult to tease out how much of his itching and crawling sensation is due to hyperglycemia/neuropathy and how much is delusion/hallucination -- meds renewed for diabetes and hypertension today BMP: Microalbumin: Foot Exam: Complete at follow up Eye Exam: Discuss at follow up Lipid panel: ASCVD: Calculate pending updated labs Statin: Yes ASA: No BERT/ARB: No Encouraged regular aerobic exercise for improved glycemic control Encouraged daily foot checks Encouraged lean protein snacks and to avoid foods high in sugar and simple carbohydrates Treatment Goals: A1c goal: <7% FBG goal: <130 2 hour post prandial goal: <180 Assessment & Plan (10/23/2023 3:10 PM EDT): Current A1c: 9.8 BMP: Microalbumin: 120 Foot Exam: Complete at follow up Eye Exam: Discuss at follow up Lipid panel: today ASCVD: Calculate pending updated labs Statin: Yes ASA: Yes BERT/ARB: Yes Encouraged regular aerobic exercise for improved glycemic control Encouraged daily foot checks Encouraged lean protein snacks and to avoid foods high in sugar and simple carbohydrates Treatment Goals: A1c goal: <7% FBG goal: <130 2 hour post prandial goal: <180 Encounters Date Type Department Care Team Description 08/03/2024 11:30 AM EST Office Visit [facility] [address] [place] [phone] Emmie Pina MD Neuropathic pain of left lower extremity (Primary Dx); Type 2 diabetes mellitus with hyperglycemia, with long-term current use of insulin (CMS/[facility]); Depression, recurrent (CMS/HCC); Class 2 severe obesity due to excess calories with serious comorbidity and body mass index (BMI) of 37.0 to 37.9 in adult (CMS/HCC); Dietary counseling; Exercise counseling; Disorders of muscle in diseases classified elsewhere, left lower leg; Encounter for screening for infections with a predominantly sexual mode of transmission 08/03/2024 Travel 08/01/[address] [address] Emmie Pina MD ER Follow-up 07/12/[address] [address] Marianne Martinez [place] No show 06/09/2024 2:20 PM EST Office Visit [facility] [address] [place] [phone] Juanita Ness MD Acute right lower quadrant pain (Primary Dx); Muscle spasm 06/09/[address] [facility] [address] [place] [phone] Anahy Berrios, JB Call to EMS for transport to [facility] 06/03/[address] [address] Emmie Pina MD 06/03/[address] [address] Sulma Grady, LIZ Results 05/26/[address] [address] Kate Becerra RNpulp press tender 05/25/[address] [address] Emmie Pina MD Prior Authorization 05/23/[address] [phone] Emmie Pina MD Prior Authorization ([facility]: Humalog) 05/16/2024 3:15 PM EST Office Visit [address] [address] Emmie Pina MD Type 2 diabetes mellitus with hyperglycemia, with long-term current use of insulin ([facility]) (Primary Dx); Blindness of left eye with normal vision in contralateral eye; Mixed conductive and sensorineural hearing loss of both ears; Pruritic, psychogenic 05/16/2024 Travel 05/05/2024 Patient Outreach [address] [address] Emmie Pina MD Pre-visit Planning ([facility] screening completed on 10/16/2023) from Last 3 Months Immunizations Name Administration Dates Next Due Hep B, adult 08/25/2008,04/07/2008 Influenza injectable quadriv alent IIV4 with preservative 03/10/2019,07/28/2017 Influenza injectable quadrivalent preservative f ree 06/02/2018 Influenza, IIV3, injectable 04/26/2014, 0 Influenza, Split (incl. purified surface antigen ) 03/02/2013,02/18/2012 Pneumococcal Polysaccharide PPSV23 08/25/2008 Td (adult), 5 Lf tetanus tox oid, preservative free, adsorbed 09/27/2016 Tdap 02/18/2012 Social History Tobacco Use Types Packs/Day Years Used Date Smoking Tobacco: Former Cigarettes Q uit: 1983 Smokeless Tobacco: Never Tobacco Cessation:Counseling Given: Not [...] Orientation Straight 04/21/2022 10 :15 AM EDT Last Filed Vital Signs Vital Sign Reading [...] Mass Index 37.04 08/03/2024 11:29 AM EST Plan of Treatment Health Maintenance Due Date Last Done Comments CT Colonography 1961 FIT DNA/Cologuard 1961 FIT 1961 FOBT 1961 Sigmoidoscopy 1961 Eye Exam 09/03/1971 Alcohol/Substance Use Screening 1973 Hepatitis B Vaccines (3 of 3 - 19+ 3-dose series) 10/20/2008 08/25/2008, 04/07/2008 Pneumococcal Vaccine: 50+ Years (2 of 2 - PCV) 08/25/2009 08/25/2008 Zoster Vaccines (1 of 2) 09/03/2011 RSV Patients and Patients Aged 60 years or older (1 - Risk 60-74 years 1-dose series) 2021 Colonoscopy 08/01/2023 08/01/2013 Colorectal Cancer Screening 08/01/2023 COVID-19 Vaccine ( season) 2024 Influenza Vaccine (#1) 2024 9, 06/02/2018, 07/28/2017, Additional history exists SDOH Screening 10/15/2024 10/16/2023 Depression Screening 10/22/2024 10/23/2023, 10/23/19 24 Diabetes: Foot Exam 10/22/2024 10/23/2023, 10/23/2023, 10/23/2023 Diabetes: Urine Protein Screening 10/22/2024 10/23/2023 Diabetes: Hemoglobin A1C 10/31/2024 025, 05/16/2024, 10/23/2023 Lipid Panel 06/03/2025 06/03/2024, 05/0 08/2023, 03/03/2022 Tobacco Screening 08/03/2025 08/03/2024 DTaP/Tdap/Td Vaccines (3 - Td or Tdap) 09/27/2026 09/27/2016, 02/18/2012 HIV Screening Completed 10/23/2023 Hepatitis C Screening Completed 10/23/2023 HIB Vaccines Aged Out No longer eligi ble based on patient's age to complete this topic HPV Vaccines Aged Out No longer eligi ble based on patient's age to complete this topic Hepatitis A Vaccines Aged Out No long er eligible based on patient's age to complete this topic IPV Vaccines Aged Out No longer eligi ble based on patient's age to complete this topic Meningococcal Vaccine Aged Out No ezequiel jefferson eligible based on patient's age to complete this topic RSV under 20 months Aged Out No longe r eligible based on patient's age to complete this topic Rotavirus Vaccines Aged Out No longer eligible based on patient's age to complete this topic Procedures Procedure Name Priority Date/Time Associated Diagnosis Comments POCT GLUCOSE Routine 08/03/2024 11:31 AM EST Type 2 diabetes mellitus with hyperglycemia, with long-term current use of insulin (CMS/HCC) POCT GLYCATED HEMOGLOBIN, TOTAL Routine 08/03/2024 11:31 AM EST Type 2 diabetes mellitus with hyperglycemia, with long-term current use of insulin ([facility]) LIPID PANEL, STANDARD Routine 06/03/2024 10:41 AM EST Type 2 diabetes mellitus with hyperglycemia, with long-term current use of insulin ([facility]) COMPREHENSIVE METABOLIC PANEL Routine 06/03/2024 10:41 AM EST Type 2 diabetes mellitus with hyperglycemia, with long-term current use of insulin ([facility]) POCT GLYCATED HEMOGLOBIN, TOTAL Routine 05/16/2024 3:42 PM EST Type 2 diabetes mellitus with hyperglycemia, with long-term current use of insulin ([facility]) POCT GLUCOSE Routine 05/16/2024 3:40 PM EST Type 2 diabetes mellitus with hyperglycemia, with long-term current use of insulin ([facility]) HEPATITIS C AB W/REFL TO HCV RNA, QN, PCR Routine 10/23/2023 10:00 AM EDT Healthcare maintenance HIV 1/2 ANTIGEN/ANTIBODY, FOURTH GENERATION W/RFL Routine 10/23/2023 10:00 AM EDT Healthcare maintenance ALBUMIN, RANDOM URINE W/CREATININE Routine 10/23/2023 10:00 AM EDT Type 2 diabetes mellitus with hyperglycemia, with long-term current use of insulin ([facility]) COLONOSCOPY Routine 08/01/2013 2:10 PM EST from Last 3 Months or Most Recently Relevant to Health Maintenance Results * (ABNORMAL) POCT HGB A1C (08/03/2024 11:31 AM EST) Only the most recent of2 resultswithin the time period is included. Hemoglobin A1C 10.8(A) 4.0 - 6.0 % QC Media Lot # [id number] Lot# Expiration Date ,026 Blood 08/03/2024 11:3 1 AM EST Emmie Pina MD POINT OF CARE TEST ENTER/EDIT ORDERABLES Final Result * (ABNORMAL) POCT Glucose (08/03/2024 11:31 AM EST) Only the most recent of2 resultswithin the time period is included. Pathologist [facility] Glucose Blood, POC 209(A) 60 - 200 mg/dL QC Media Lot # [id number] Lot# Expiration Date 172,025 Blood Capillary blood specimen / Unknown 08/03/2024 11:31 AM EST us Emmie Pina MD POINT OF CARE TEST ENTER/EDIT ORDERABLES Final Result * (ABNORMAL) Lipid Panel, Standard (06/03/2024 10:41 AM EST) Triglycerides 205(H) <150 mg/dL [facility] Comment:Desirable Triglyceri de: less than 150 mg/dLBorderline High Triglyceride 150-199 mg/dLHigh Triglyceride: 200-499 mg/dLVery High Triglyceride: greater than or equal to 5OO mg/dL Cholesterol 224(H) <200 mg/dL [facility] Comment:Desirable Cholestero l: less than 200 mg/dLBorderline High Cholesterol: 200-239 mg/dLHigh Cholesterol: greater than 239 mg/dL LDL Cholesterol Calculated 144(H) <100 mg/dL [facility] Comment:Desirable LDL: less than 100 mg/dLNear Optimal/Above Optimal LDL: 110- 129 mg/dLBorderline High LDL: 130-159 mg/dLHigh LDL: 160-189 mg/dLVery High LDL: greater than or equal to 190 mg/dL HDL Cholesterol 39(L) >40 mg/dL [facility] Comment:Desirable HDL: great er than 40 mg/dL Note: This HDL assay may give artificially low results in patients with liver disease. Blood Venous blood specimen / Unknown 06/03/2024 10:41 AM EST 06/03/2024 11:04 AM EST us Emmie Pina MD LAB BLOOD ORDERABLES Final Res ult [facility] [address] [place] [phone] [phone] * (ABNORMAL) Comprehensive Metabolic Panel (06/03/2024 10:41 AM EST) Sodium 136 135 - 145 mmol/L [facility] Potassium 4.1 3.3 - 5.1 mmol/L [facility] Chloride 102 96 - 108 mmol/L [facility] Carbon Dioxide 27 22 - 29 mmol/L [facility] Anion Gap 11(L) 12 - 20 [facility] Urea Nitrogen (BUN) 27(H) 9 - 16 mg/dL [facility] Creatinine, Serum 1.10 0.5 - 1.4 mg/dL [facility] Estimated Glomerular Filt Rate >60 [facility] Comment:Chronic Kidney Disea se: Estimated GFR < 60 mL/min/[id number] Kidney Disease: Estimated GFR < 15 mL/min/1.73m2 Glucose 439(HH) 60 - 115 mg/dL [facility] Comment:Critical value for G LUR: Results called to and read backby: Fouzia Quiñonez Person calling: CECELIA Date: 06/03/24 Time:1414 Calcium 9.1 8.4 - 10.2 mg/dL [facility] Bilirubin, Total 0.4 0.0 - 1.0 mg/dL [facility] Aspartate Amino Transferase 17 5 - 37 U/L [facility] Alanine Aminotransferase 22 0 - 40 U/L [facility] Total Protein 7.3 6.5 - 8.0 g/dL [facility] Albumin Level 4.0 3.5 - 5.0 g/dL [facility] Alkaline Phosphatase 73 39 - 117 U/L [facility] Blood Venous blood specimen / Unknown 06/03/2024 10:41 AM EST 06/03/2024 11:04 AM EST Emmie Pina MD LAB BLOOD ORDERABLES Final Res ult Performing Organization Address [facility] Co de Phone Number [facility] [address] [place] [phone] * (ABNORMAL) Albumin, Random Urine W/Creatinine (10/23/2023 10:00 AM EDT) Creatinine, Urine 96.27 mg/dL [facility] Microalbumin Urine 116.0 mg/L [facility] Microalbum Creatinine Ratio Ur 120.4(H) <30 ug/mg cr [facility] Comment:Albumin/Creatinine R atio Reference Ranges: Normal: < 30 ug/mg creatinine Microalbuminuria: 30 - 300 ug/mg creatinineClinical Albuminuria: > 300 ug/mg creatinine Urine (Urine, Random) 10/23/2023 10:00 AM EDT 10/23/2023 11:21 AM EDT us Emmie Pina MD LAB URINE ORDERABLES Final Res ult Performing Organization Address [facility] Co de Phone Number [facility] [address] [place] [phone] * Hepatitis C Antibody with Reflex to HCV, RNA, Quantitative, Real-Time PCR (10/23/2023 10:00 AM EDT) Hepatitis C Antibody Nonreactive Nonreactive [facility] Comment:Antibodies to HCV no t detected; does not exclude early acuteHCV infection. Blood Venous blood specimen / Unknown 10/23/2023 10:00 AM EDT 10/23/2023 11:35 AM EDT Emmie Pina MD LAB BLOOD ORDERABLES Final Res ult Performing Organization Address City/[facility]/ZIP Co de Phone Number [facility] [address] [place] [phone] [phone] * HIV-1/2 Antigen and Antibodies, Fourth Generation, with Reflexes (10/23/2023 10:00 AM EDT) HIV AB/AG Nonreactive Nonreactive [facility] Comment:HIV-1 p24 Ag and/or HIV-1/HIV-2 Ab not detected.A test result that is nonreactive does not exclude thepossibility of exposure to or infection with HIV-1 and/orHIV-2. Nonreactive results in this assay for individualswith prior exposure to HIV-1 and/or HIV-2 may be due toantigen and antibody levels that are below the limit ofdetection of this assay.The Xingu[employer]u HIV Ag/Ab Combo assay result andsupplemental assay results should be interpreted inconjunction with the patient's clinical presentation,history and other laboratory results. If the results areinconsistent with clinical evidence, additional testing issuggested to confirm the result. Blood Venous blood specimen / Unknown 10/23/2023 10:00 AM EDT 10/23/2023 11:35 AM EDT Emmie Pina MD LAB BLOOD ORDERABLES Final Res ult Performing Organization Address City/[facility]/ZIP Co de Phone Number [facility] [address] [place] [phone] * Hm Colonoscopy (08/01/2013 2:10 PM EST) Colonoscopy Normal Normal Narrative Rhea Narayan - 08/01/2013 2:10 PM EST Recommended 10 year follow up Historical Provider HEALTH MAINTENANCE Final Result from Last 3 Months or Most Recently Relevant to Health Maintenance Insurance [place] [address] [place] [id number] Care Teams Specialty Sales Consultant Relationship Specialty Start Date End Date Emmie Pina MD [address] [place] [phone] PCP - General Family Medicine 10/23/23
--- OUTSIDE RECORDS SUMMARY | 2024-08-03 13:47 | XMS_ITS | Encounter Summary ---
Author Organization [employer] Address [address] [place] [address] [address] [place] [address] Care Team Providers Care Metrology Engineer Name Role Phone Sury Phillips Primary Care Provider [phone] Emmie Pina MD Primary Care Provider [phone] Encounter Details Date Type Department Care Team (Late st Contact Info) Description 06/06/2022 Orders Only [facility] [address] [place] [address] Lou Goodwin RN Social History Tobacco Use Types Packs/Day Years Used Date Smoking Tobacco: Never Assessed Sex and Gender Information Value Date Recorded Sex Assigned at Male 04/21/2022 10:15 AM EDT Legal Sex Male 10:15 AM EDT Gender Identity Male 04/21/2022 10:15 AM EDT Sexual Orientation Straight 04/21/2022 10 :15 AM EDT documented as of this encounter Plan of Treatment Not on file documented as of this encounter Visit Diagnoses Not on filedocumented in this encounter Care Teams Metrology Engineer Relationship Specialty Start Date End Date Sury Phillips FNP [address] [place] [phone] PCP - General Family Medicine 05/08/22 01/07/23 Emmie Pina MD [address] [place] [phone] PCP - General Family Medicine 10/23/23 documented as of this encounter
--- OUTSIDE RECORDS SUMMARY | 2024-08-03 13:47 | XMS_ITS | Encounter Summary ---
Author Organization [employer] Address [address] [facility] 7t [place] [address] Care Team Providers Care Rotary Furnace Operator Name Role Phone Sury Phillips Primary Care Provider [phone] Emmie Pina MD Primary Care Provider [phone] Encounter Details Date Type Department Care Team (Late st Contact Info) Description 12/03/2022 Abstract [facility] MEDICINE [address] [place] [address] Sury Phillips FNP [address] [place] [address] Social History Tobacco Use Types Packs/Day Years [...] on file documented as of this encounter Procedures Procedure Name Priority Date/Time Associated Diagnosis Comments COLONOSCOPY Routine 08/01/2013 2:10 PM EST documented in this encounter Results * Colonoscopy (08/01/2013 2:10 PM EST) [facility] Colonoscopy Normal Normal Narrative Rhea Narayan 08/01/2013 2:10 PM EST Recommended 10 year follow up us Historical Provider HEALTH MAINTENANCE Final Result documented in this encounter Visit Diagnoses Not on filedocumented in this encounter Additional Health Concerns Assessment Noted Time PHQ-9 Depression Total Score: 18 023 10:57 AM EST documented as of this encounter Care Teams Rotary Furnace Operator Relationship Specialty Start Date End Date Sury Phillips FNP [address] [place] [address] PCP - General Family Medicine 05/08/22 01/07/23 Emmie Pina MD [address] [place] [address] PCP - General Family Medicine 10/23/23 documented as of this encounter
--- OUTSIDE RECORDS SUMMARY | 2024-08-03 13:47 | XMS_ITS | Encounter Summary ---
Author Organization [employer] Address [address] [place] [address] 7t [place] [address] Care Team Providers Care Senior Portfolio Analyst Name Role Phone Sury Phillips Primary Care Provider [phone] Emmie Pina MD Primary Care Provider [phone] Reason for Visit * Reason Onset Date Comments Appointment Request 06/10/2022 Encounter Details Date Type Department Care Team ([facility] st Contact Info) Description 06/10/2022 Telephone [facility] MEDICINE [address] [place] [address] Sury Phillips FNP [address] [place] [address] Appointment Request Social History Tobacco Use Types Packs/Day Years Used Date Smoking Tobacco: Never Assessed Sex and Gender Information Value Date Recorded Sex Assigned at Male 04/21/2022 10:15 AM EDT Legal Sex Male 10:15 AM EDT Gender Identity Male 04/21/2022 10:15 AM EDT Sexual Orientation Straight 04/21/2022 10 :15 AM EDT documented as of this encounter Miscellaneous Notes * Telephone Encounter - Mariusz Currie - 06/10/2022 9:27 AM EST Tc from pt requesting to r/s appt 06/10/22 ( Office Visit ) white, peeling areas on soles of both feet. pt is diabetic. no drainage or severe redness. Please contact pt at [phone] documented in this encounter Plan of Treatment Not on file documented as of this encounter Visit Diagnoses Not on filedocumented in this encounter Care Teams Senior Portfolio Analyst Relationship Specialty Start Date End Date Sury Phillips FNP [address] [place] [address] PCP - General Family Medicine 05/08/22 01/07/23 Emmie Pina MD [address] [place] [address] PCP - General Family Medicine 10/23/23 documented as of this encounter
--- OUTSIDE RECORDS SUMMARY | 2024-08-03 13:47 | XMS_ITS | Encounter Summary ---
Author Organization [employer] Address [address] [facility] 7t [place] [address] Care Team Providers Care Microbiology Quality Control Technician Name Role Phone Emmie Pina MD Primary Care Provider [phone] Encounter Details Date Type Department Care Team (Latest Contact Info) Description 08/03/2024 Travel Social History Tobacco Use Types Packs/Day Years Used Date Smoking Tobacco: Former Cigarettes Q uit: 1982 Smokeless Tobacco: Never Alcohol Use Standard Drinks/Week [...] documented as of this encounter Care Teams Microbiology Quality Control Technician Relationship Specialty Start Date End Date Emmie Pina MD [address] [place] [address] PCP - General Family Medicine 10/23/23 documented as of this encounter
[2024-08-03 14:35] LABS: TSH reflex Free T4 1.14 uIU/mL (0.32-4.0)
[2024-08-03 14:56] LABS: Folate 11.6 ng/mL (> or = 4.0); Vitamin B12 572 pg/mL (200-900)
[2024-08-04 17:08] LABS: RPR Rapid Plasma Reagin REACTIVE (NON-REACTIVE)
== END 2024-08-03 12:09 | disposition home or self-care (01) ==
LOC: HO.HHCL 12:08
PROVIDERS: Visit Provider General Practice
DX: M79.2 Neuralgia and neuritis, unspecified (principal); M63.86 Disorders of muscle in diseases classified elsewhere, lower leg; Z11.3 Encounter for screening for infections with a predominantly sexual mode of transmission
CPT/HCPCS: 36415; 82607; 82746; 84443; 86592; 86593

== ENCOUNTER 2024-12-12 13:59 | Outpatient (RCR) | payer MEDICARE, SELFPAY | END 2025-04-12 14:27 | disposition home or self-care (01) | LOC: HO.PT 13:59 | PROVIDERS: PCP General Practice; Visit Provider Internal Medicine | DX: M25.562 Pain in left knee (principal); G89.29 Other chronic pain | CPT/HCPCS: 97110; 97161; 97535 ==

== ENCOUNTER 2025-05-26 17:38 | Outpatient (REF) | payer MEDICARE, SELFPAY ==
--- OUTSIDE RECORDS SUMMARY | 2025-05-26 10:00 | XMS_ITS | Encounter Summary ---
Author Organization [employer] Address [address] [place] [address] 7t [place] [address] Care Team Providers Care Textile Coating Machine Operator Name Role Phone Emmie Pina MD Primary Care Provider [phone] Virginia Poon PharmD Unavailable [phone] Reason for Visit * Reason Comments sick onsite Encounter Details Date Type Department Care Team (Late st Contact Info) Description 05/26/2025 10:00 AM EST Office Visit [facility] MEDICINE [address] [place], [place] [phone] Amanda Boucher DO [address] [place], [place] [phone] Scrotal pain (Primary Dx); Essential hypertension Social History Tobacco Use Types Packs/Day Years Used Date Smoking Tobacco: Former Cigarettes Q uit: 1983 Passive Smoke Exposure: Never Smokeless Tobacco: Never Alcohol Use Standard Drinks/Week Comments Not Currently 0 (1 standard drink = 0.6 oz pur e alcohol) Depression Answer Date Recorded Patient Health Questionnaire-9 Score 13 11/02/2024 Patient Health Questionnaire-9 Score 13 11/02/2024 Last PHQ-9: Questionnaire Data Not on file 0 11/02/2024 Housing Stability Answer Date Recorded What is your housing situation today? I have neil hylton 11/02/[address] you li ve. Do you have problems with any of the following? None of the above 11/02/2024 Food Insecurity Answer Date Recorded Within the past 12 months, y ou worried that your food would run out before you got money to buy more: Never True 11/02/2024 Within the past 12 months,th e food you bought just didn't last and you didn't have enough money to get more: Never True Transportation Answer Date Recorded In the past 12 months, has l ack of transportation kept you from medical appts, meetings, work or from getting things needed for daily living? No 11/02/2024 Utilities Answer Date Recorded In the past 12 months, has t he electric, gas, oil or water company threatened to shut off services in your home? No 11/02/2024 Depression Answer Date Recorded Patient Health Questionnaire-2 Score 4 11/02/2024 Internet Access Answer Date Recorded Internet Access Q1 Yes 11/02/2024 Internet Access Q2 Not on file 11/02/2024 Sex and Gender Information Value Date Recorded Sex Assigned at Male 04/21/2022 10:15 AM EDT Legal Sex Male 10:15 AM EDT Gender Identity Male 04/21/2022 10:15 AM EDT Sexual Orientation Straight 04/21/2022 10 :15 AM EDT documented as of this encounter Last Filed Vital Signs Vital Sign Reading Time Taken Comments Blood Pressure 152/80 05/26/2025 10:20 AM EST Pulse 80 05/26/2025 10:20 AM EST Temperature 36.7 C (98.1 F) 05/26/2025 10:20 AM EST Respiratory Rate 22 05/26/2025 10:20 AM EST Oxygen Saturation - - Inhaled Oxygen Concentration - - Weight 109 kg (240 lb) 05/26/2025 10:20 AM EST Height 162.6 cm (5' 4 ) 05/26/2025 10:20 AM EST Body Mass Index 41.2 05/26/2025 10:20 AM EST documented in this encounter Plan of Treatment Upcoming Encounters Date Type Department Care Team (Late st Contact Info) Description 06/08/2025 1:30 PM EST Medication Management [facility] MEDICINE [address] [place] [address] Virginia Poon, PharmD [address] [place] [address] Scheduled Orders Name Type Priority Associated Diagnoses Orde r Schedule Urine Culture Routine Microbiology Routine Scrotal pain Ordered: 05/26/2025 Chlamydia/N. Gonorrhoeae RNA, TMA, Urogenitial Microbiology Routine Scrotal pain Ordered: 05/26/2025 documented as of this encounter Goals Goal Patient Goal Type Associated Problems Recent Progress Patient-Stated? Author Help patients manage their type 2 diabetes Care Plan Help patients manage their type 2 diabetes No Shona Fonseca Weekly blood pressure task Care Plan Weekly blood pressure task No Shona Fonseca Help patients manage their type 2 diabetes Care Plan Help patients manage their type 2 diabetes No Shona Fonseca Patient has chronic kidney disease Care Plan Patient has chronic kidney disease No Shona Fonseca Weekly blood pressure task Care Plan Weekly blood pressure task No Shona Fonseca Patient has chronic kidney disease Care Plan Patient has chronic kidney disease No Shona Fonseca Weekly blood pressure task Care Plan Weekly blood pressure task No Amanda Boucher DO Weekly blood pressure task Care Plan Weekly blood pressure task No Amanda Boucher DO Patient has chronic kidney disease Care Plan Patient has chronic kidney disease No Amanda Boucher DO Patient has chronic kidney disease Care Plan Patient has chronic kidney disease No Amanda Boucher DO documented as of this encounter Procedures Procedure Name Priority Date/Time Associated Diagnosis Comments POCT URINALYSIS DIPSTICK Routine 05/26/2025 11:18 AM EST Scrotal pain documented in this encounter Results * POCT Urinalysis (05/26/2025 11:18 AM EST) Color, UA Yellow Clarity, UA Clear Glucose, UA Negative Bilirubin, UA Negative Ketones, UA Negative Spec Grav, UA 1.025 Blood, UA Negative Negative, None Detected pH, UA 6.0 Protein, UA 2+ (35) Comment:30 mg/dl Urobilinogen, UA 0.2 Leukocytes, UA Negative Negative, Rare, Trace, 1+ (17), 2+ (35), 3+ (70), Trace (15) Nitrite, UA Negative Negative, None Detected Appearance, UA yellow QC Media Lot # [id number] Lot# Expiration Date Urine (Urine, Random) 05/26/2025 11:18 AM EST Amanda Boucher DO POINT OF CARE TEST ENTER/TELMA T ORDERABLES Final Result documented in this encounter Visit Diagnoses Diagnosis Scrotal pain- Primary Unspecified disorder of male genital organs Essential hypertension Unspecified essential hypertension documented in this encounter Additional Health Concerns Active Problems Noted Date Diagnosed Date Help patients manage their type 2 diabetes 05/25 Weekly blood pressure task 05/25/2025 Help patients manage their type 2 diabetes 05/25 Patient has chronic kidney disease 05/25/2025 Weekly blood pressure task 05/25/2025 Patient has chronic kidney disease 05/25/2025 Weekly blood pressure task 05/26/2025 Weekly blood pressure task 05/26/2025 Patient has chronic kidney disease 05/26/2025 Patient has chronic kidney disease 05/26/2025 Assessment Noted Time PHQ-9 Depression Total Score: 13 025 3:21 PM EDT documented as of this encounter Care Teams Textile Coating Machine Operator Relationship Specialty Start Date End Date Emmie Pina MD [address] [place] [address] PCP - General Family Medicine 10/23/23 Virginia Poon PharmD [address] [place] [address] Pharmacist Pharmacy 12/21/24 documented as of this encounter
--- OUTSIDE RECORDS SUMMARY | 2025-05-26 20:02 | XMS_ITS | Encounter Summary ---
Author Organization [employer] [facility] Address [address] [place] [address] 7t [place] [address] Care Team Providers Care Cattyman Name Role Phone Sury Phillips Primary Care Provider [phone] Emmie Pina MD Primary Care Provider [phone] Virginia Poon PharmD Unavailable Encounter Details Date Type Department Care Team (Late st Contact Info) Description 06/06/2022 Orders Only [facility] MEDICINE [address] [place] [address] Lou Goodwin, JB Social History Tobacco Use Types Packs/Day Years Used Date Smoking Tobacco: Never Assessed Sex and Gender Information Value Date Recorded Sex Assigned at Male 04/21/2022 10:15 AM EDT Legal Sex Male 10:15 AM EDT Gender Identity Male 04/21/2022 10:15 AM EDT Sexual Orientation Straight 04/21/2022 10 :15 AM EDT documented as of this encounter Plan of Treatment Upcoming Encounters Date Type Department Care Team (Late st Contact Info) Description 06/08/2025 1:30 PM EST Medication Management [facility] MEDICINE [address] [place] [address] Virginia Poon, PharmD [address] [place] [address] documented as of this encounter Visit Diagnoses Not on filedocumented in this encounter Care Teams Cattyman Relationship Specialty Start Date End Date Sury Phillips FNP [address] [place] [address] PCP - General Family Medicine 05/08/22 01/07/23 Emmie Pina MD [address] [place], [place] [phone] PCP - General Family Medicine 10/23/23 Virginia Poon PharmD [address] [place] [address] Pharmacist Pharmacy 12/21/24 documented as of this encounter
--- OUTSIDE RECORDS SUMMARY | 2025-05-26 20:02 | XMS_ITS | Encounter Summary ---
Author Organization [employer] Address [address] [place] [address] 7t [place] [address] Care Team Providers Care Deportation Officer Name Role Phone Sury Phillips Primary Care Provider [phone] Emmie Pina MD Primary Care Provider Virginia Poon PharmD Unavailable Reason for Visit * Reason Onset Date Comments Appointment Request 06/10/2022 Encounter Details Date Type Department Care Team (Late st Contact Info) Description 06/10/2022 Telephone [facility] MEDICINE [address] [place] [address] Sury Phillips FNP [address] [place] [address] Appointment Request Social History Tobacco Use Types [...] or severe redness. Please contact pt at [phone] documented in this encounter Plan of Treatment Upcoming Encounters Date Type Department Care Team (Late st Contact Info) Description 06/08/2025 1:30 PM EST Medication Management [facility] MEDICINE [address] [place] [address] Virginia Poon PharmD [address] [place] [address] documented as of this encounter Visit Diagnoses Not on filedocumented in this encounter Care Teams Deportation Officer Relationship Specialty Start Date End Date Sury Phillips FNP [address] [place] [address] PCP - General Family Medicine 05/08/22 01/07/23 Emmie Pina MD [address] [place] [phone] PCP - General Family Medicine 10/23/23 Virginia Poon PharmD [address] [place] [address] Pharmacist Pharmacy 12/21/24 documented as of this encounter
--- OUTSIDE RECORDS SUMMARY | 2025-05-26 20:02 | XMS_ITS | Encounter Summary ---
Author Organization [employer] Address [address] [place] [address] 7t [place] [address] Care Team Providers Care Slitter And Rewinder Name Role Phone Sury Phillips Primary Care Provider [phone] Emmie Pina MD Primary Care Provider [phone] Virginia Poon PharmD Unavailable [phone] Reason for Visit * Reason Onset Date Comments triage 07/31/2022 Encounter Details Date Type Department Care Team (Late st Contact Info) Description 07/31/2022 Telephone [facility] MEDICINE [address] [place] [address] Sury Phillips FNP [address] [place] [address] triage Social History Tobacco Use Types Packs/Day [...] AM EST documented as of this encounter Functional Status * Over the past 2 weeks, how often have you been bothered by any of the following problems? Question Answer Date of Assessment Author Patient Health Questionnaire-2 Score 6 07/23 10:57 AM Bita Tyson * How difficult have these problems made it for you to do your work, take care of things at home, or get along with other people? Answer Date of Assessment Author Not difficult at all 08/01/2022 10:57 AM Bita Kemp * Over the past 2 weeks, how often have you been bothered by any of the following problems? Question Answer Date of Assessment Author Little interest or pleasure in doing things Nearly every day 08/01/2022 10:57 AM Bita Tyson Feeling down, depressed, or hopeless Nearly every day 08/01/2022 10:57 AM Bita Tyson Trouble falling or staying asleep, or sleeping too much Nearly every day 08/01/2022 10:57 AM Bita Tyson Feeling tired or having compa le energy Nearly every day 08/01/2022 10:57 AM Bita Tyson Poor appetite or overeating Nearly every day 10:57 AM Bita Tyson Feeling bad about yourself - or that you are a failure or have let yourself or your family down Not at all 08/01/2022 10:57 AM Bita Tyson Trouble concentrating on things, such as reading the newspaper or watching television Nearly every day 08/01/2022 10:57 AM Bita Tyson Moving or speaking so slowly that other people could have noticed? Or the opposite - being so fidgety or restless that you have been moving around a lot more than usual. Not at all 08/01/2022 10:57 AM Bita Tyson Thoughts that you would be better off or hurting yourself in some way Not at all 08/01/2022 10:57 AM Bita Tyson Patient Health Questionnaire -9 Score 18 08/01/2022 10:57 AM Bita Tyson documented as of this encounter Miscellaneous Notes * Telephone Encounter - Sharona Salomon RN - 07/31/2022 4:06 PM EST Called pt. Via [place] historic interpreter Karma [phone]. Environmental Monitoring Specialist called both provided numbers 2 x and got messages that there is an error when trying to dial . Environmental Monitoring Specialist put me through to a new historic interpreter in case it was a bad connection on her part. New historic interpreter Elizabeth [id number] called [phone] and pt. Answered phone. Pt. States that [...] Will send this note so that a [employer] [facility] [employer] clinician can bepresent at office visit and [...] pt requesting a phycologist referral pt speaks syrian documented in this encounter Plan of Treatment Upcoming Encounters Date Type Department Care Team (Late st Contact Info) Description 06/08/2025 1:30 PM EST Medication Management [facility] MEDICINE [address] [place] [address] Virginia Poon PharmD [address] [place] [address] documented as of this encounter Visit Diagnoses Not on filedocumented in this encounter Care Teams Slitter And Rewinder Relationship Specialty Start Date End Date Sury Phillips FNP [address] [place], [place] [phone] PCP - General Family Medicine 05/08/22 01/07/23 Emmie Pina MD [address] [place] [phone] PCP - General Family Medicine 10/23/23 Virginia Poon PharmD [address] [place] [phone] Pharmacist Pharmacy 12/21/24 documented as of this encounter
--- OUTSIDE RECORDS SUMMARY | 2025-05-26 20:02 | XMS_ITS | Encounter Summary ---
Author Organization [employer] Address [address] [place] [address] 7t [place] [address] Care Team Providers Care Transport Operations Inspector Name Role Phone Emmie Pina MD Primary Care Provider [phone] Virginia Poon PharmD Unavailable [phone] Reason for Visit * Reason Onset Date Comments Nurse Triage 05/25/2025 Encounter Details Date Type Department Care Team ([facility] st Contact Info) Description 05/25/2025 Telephone [facility] MEDICINE [address] [place] [address] Emmie Pina MD [address] [place] [address] Nurse Triage Social History Tobacco Use Types Packs/Day Years [...] encounter Miscellaneous Notes * Telephone Encounter - Juanita Faustin RN - 05/25/2025 4:19 PM EST TC to pt. Pt states that over past 2 weeks he has been developing white pustules on penis shaft andpustules are now beginning to drain and is painful. Denies trouble urinating and denies blood in urine. Advised of scheduling appt for tomorrow. Appt scheduled for 10 AM on Red Team. Pt verbalized understanding and agreement with plan and appt. Protocol Used: Penis and Scrotum Symptoms (Adult) Disposition for Call (Nurse Override): See in Office or Video Visit Today or Tomorrow Override Reason: No appointments available Protocol-Based Disposition: See in Office or Video Visit Today Positive Triage Questions: * Pus (white, yellow) or bloody discharge from end of penis * Rash with painful tiny water blisters or painful sores * All higher-acuity triage questions were negative. Care Advice Discussed: * Reassurance and Education - STIs * STIs - Symptoms * Genital Hygiene * Reasons To Call Back - Fever or pain occur - You become worse * Telephone Encounter - Shona Dolly - 05/25/2025 3:50 PM EST Symptom: Penis Symptoms Outcome: Schedule an appointment to be seen within 24 hours Reason: Caller denied all higher acuity questions The caller accepted this outcome. Contact pt at [phone] documented in this encounter Plan of Treatment Upcoming Encounters Date Type Department Care Team (Late st Contact Info) Description 06/08/2025 1:30 PM EST Medication Management [facility] MEDICINE [address] [place] [address] Virginia Poon, PharmD [address] [place] [address] documented as of this encounter Goals Goal [...] has chronic kidney disease No Shona Fonseca documented as of this encounter Visit Diagnoses Not on filedocumented in this encounter Additional Health Concerns Active Problems Noted Date Diagnosed Date Help patients manage their type 2 diabetes 05/25 Weekly blood pressure task 05/25/2025 Help patients manage their type 2 diabetes 05/25 Patient has chronic kidney disease 05/25/2025 Weekly blood pressure task 05/25/2025 Patient has chronic kidney disease 05/25/2025 Assessment Noted Time PHQ-9 Depression Total Score: 13 05/14/2 025 3:21 PM EDT documented as of this encounter Care Teams Transport Operations Inspector Relationship Specialty Start Date End Date Emmie Pina MD [address] [place] [address] PCP - General Family Medicine 10/23/23 Virginia Poon, Traci [address] [place] [address] Pharmacist Pharmacy 12/21/24 documented as of this encounter
--- OUTSIDE RECORDS SUMMARY | 2025-05-26 20:02 | XMS_ITS | Encounter Summary ---
Author Organization [employer] Address [address] [place] [address] 7t [place] [address] Care Team Providers Care Practical Nurse Name Role Phone Sury Phillips Primary Care Provider [phone] Emmie Pina MD Primary Care Provider [phone] Virginia Poon PharmD Unavailable Encounter Details Date Type Department Care Team (Late st Contact Info) Description 12/03/2022 Abstract [facility] MEDICINE [address] [place] [address] Sury Phillips FNP [address] [place] [address] Social History Tobacco Use Types Packs/Day Years [...] Description 06/08/2025 1:30 PM EST Medication Management [facility] MEDICINE [address] [place] [address] Virginia Poon PharmD [address] [place] [address] documented as of this encounter Procedures Procedure Name Priority Date/Time Associated Diagnosis Comments HM COLONOSCOPY Routine 08/01/2013 2:10 PM EST documented in this encounter Results * Hm Colonoscopy (08/01/2013 2:10 PM EST) [...] documented as of this encounter Care Teams Practical Nurse Relationship Specialty Start Date End Date Sury Phillips FNP [address] [place] [address] PCP - General Family Medicine 05/08/22 01/07/23 Emmie Pina MD [address] [place] [address] PCP - General Family Medicine 10/23/23 Virginia Poon, Traci [address] [place] [address] Pharmacist Pharmacy 12/21/24 documented as of this encounter
--- OUTSIDE RECORDS SUMMARY | 2025-05-26 20:02 | XMS_ITS | Encounter Summary ---
Author Organization [employer] Address [address] [facility] 7t [place] [address] Care Team Providers Care Spanish Interpreter/Translator Name Role Phone Emmie Pina MD Primary Care Provider [phone] Virginia Poon PharmD Unavailable [phone] Encounter Details Date Type Department Care Team (Latest Contact Info) Description 05/26/2025 Travel Social History Tobacco Use Types Packs/Day [...] Description 06/08/2025 1:30 PM EST Medication Management [facility] MEDICINE [address] [place], [place] [phone] Virginia Poon, PharmD [address] [place] [address] documented as of this encounter Goals Goal [...] Boucher DO documented as of this encounter Visit Diagnoses Not on filedocumented in this encounter Additional Health Concerns Active Problems Noted Date Diagnosed Date Help patients manage their type 2 diabetes 12/04 /2025 Weekly blood pressure task 05/25/2025 Help patients [...] documented as of this encounter Care Teams Spanish Interpreter/Translator Relationship Specialty Start Date End Date Emmie Pina MD [address] [place] [address] PCP - General Family Medicine 10/23/23 Virginia Poon PharmD [address] [place] [address] Pharmacist Pharmacy 12/21/24 documented as of this encounter
--- OUTSIDE RECORDS SUMMARY | 2025-05-26 20:02 | XMS_ITS | Clinical Summary ---
Author Organization [employer] Address [address] [facility] [address] [place] [address] Care Team Providers Care Asphalt Surface Heater Operator Name Role Phone Emmie Pina MD Primary Care Provider [phone] Virginia Poon PharmD Unavailable [phone] Allergies Active Allergy Reactions Criticality Noted Date Comments Codeine Dizziness Low 04/16/2012 Medications * This document contains information received from the source organization and may not represent a complete record from that organization. lisinopril 40 MG tablet TAKE 1 TABLET BY MOUTH EVERY MORNING 90 tablet 3 05/16/20 24 Active triamcinolone (Kenalog) 0.1 % cream Apply topically if needed in the morning and at bedtime for rash. 30 g 3 5 4:29 PM EST 11/03/19 25 Active albuterol (Ventolin HFA) 108 (90 Base) MCG/ACT inhaler Inhale 2 puffs every 4 (four) hours if needed for wheezing. 18 g 11 5 4:29 PM EST 11/03/19 25 Active aspirin 81 MG EC tabletIndication s:Type 2 diabetes mellitus with hyperglycemia, with long-term current use of insulin (HCC) Take 1 tablet (81 mg) by mouth Once per day. 90 tablet 3 11/03/19 25 Active atorvastatin (Lipitor) 80 MG tabletIndication s:Type 2 diabetes mellitus with hyperglycemia, with long-term current use of insulin (HCC) Take 1 tablet (80 mg) by mouth Once per day. 90 tablet 3 11/03/19 25 Active cholecalciferol (Vitamin D-3) 50 MCG (1999 UT) capsuleIndicatio ns:Vitamin D insufficiency Take 1 capsule by mouth every morning 90 capsule 3 11/03/19 Active fluticasone (Flovent HFA) 110 MCG/ACT inhaler Inhale 1 puff every 12 (twelve) hours. 12 g 11 11/03/19 Active Additional Information Patient not taking.Reason: PA denied on 02/24/25, Reported on 03/21/2025 gabapentin (Neurontin) 300 MG capsuleIndicatio ns:Type 2 diabetes mellitus with hyperglycemia, with long-term current use of insulin (HCC) Take 1 capsule (300 mg) by mouth if needed in the morning, at noon, and at bedtime (pain in nerves). 90 capsule 11 4:29 PM EST 11/03/192025 Active Additional Information Patient taking differently:300 mg Oral2 times daily, Reason: Side effects (c/o dizziness with TID use, consider sending new/updated RX), Reported on 03/21/2025 OLANZapine (ZyPREXA) 2.5 MG tabletIndication s:Psychogenic formication Take 1 tablet (2.5 mg) by mouth at bedtime. For itching 30 tablet 2 11/03/19 Active omeprazole (PriLOSEC) [address] capsule TAKE 1 CAPSULE BY MOUTH EVERY DAY AT NOON 90 capsule 11/03/19 Active Continuous Glucose Hose Stripper (FreeStyle Nova [address] [place]) device 1 each Once per day. Use as directed for CGM 1 each 12/22/19 Active Continuous Glucose Sensor (FreeStyle Nova 3 Plus Sensor) misc 1 each every 15 days. Apply 1 every 15 days as directed for CGM 2 each 4:29 PM EST 12/22/19 Active Additional Information Patient not taking.Reason: madie resume, see CDTM note 03/21/25, Reported on 03/21/2025 glucose blood (FreeStyle Precision Fox Test) test strip Use to test blood sugar 4 times daily in case of CGM failure or extremes of BG 100 each 5 4:29 PM EST 12/22/19 25 2025 Active Blood Pressure kit Use to check BP once daily as directed 1 kit 12/22/19 Active insulin lispro (HumaLOG) 100 UNIT/ML injection Use 20 units with breakfast, lunch and dinner 15 mL 11 5 4:29 PM EST 12/22/19 Active insulin pen needle 32G x 4 mm misc Use to inject insulin 4 times daily 100 each 11 5 4:29 PM EST 12/22/19 Active TRUEplus Lancets 33G misc Use to test blood sugar 4 time(s) daily 100 each 11 5 4:29 PM EST 12/22/19 Active Dulaglutide 0.75 MG/0.5ML solution auto-injectorInd ications:Type 2 diabetes mellitus with hyperglycemia, with long-term current use of insulin ([facility]) Inject 0.75 mg under the skin 1 (one) time per week. 2 mL 3 5 4:29 PM EST 03/21/20 Active Additional Information Patient not taking.Reason: will resume, see CDTM note 03/21/25, Reported on 03/21/2025 insulin degludec (Tresiba FlexTouch) 200 UNIT/ML injectionIndicat ions:Type 2 diabetes mellitus with hyperglycemia, with long-term current use of insulin ([facility]) Inject 20 Units under the skin at bedtime. 9 mL 2 5 4:29 PM EST 03/21/20 Active Alcohol Swabs (Alcohol Prep) 70 % padsIndications: Type 2 diabetes mellitus with hyperglycemia, with long-term current use of insulin ([facility]) USE DIRECTED TWICE DAILY 100 each 04/28/20 Active acetaminophen (Tylenol 8 Hour) 650 MG ER tablet Take 1 tablet (650 mg) by mouth every 8 (eight) hours if needed for mild pain. Do not crush, chew, or split. 40 tablet 1 05/26/20 25 2025 Active Alcohol Swabs 70 % padsIndications: Type 2 diabetes mellitus with hyperglycemia, with long-term current use of insulin ([facility]) Use to test blood sugar 2 times daily 100 each 11/03/19 25 2024 Discontinued clotrimazole (Lotrimin) 1 % creamIndications :Fungal rash of torso Apply topically 2 times daily for 28 days. ON NECK 30 g 5 5 4:29 PM EST 11/03/19 25 2024 Active Problems Problem Noted Date Diagnosed Date Moderate major depression ([facility]/HCC) 12/05/2024 Rash 11/24/2024 Assessment & Plan (11/24/2024 5:07 PM EDT): I prescribed for him clotrimazole with betamethasone cream to apply to 2 times a day for 2 weeks report back if rash is not getting better Chronic pain of left knee 11/24/2024 Assessment & Plan (11/24/2024 5:06 PM EDT): I refer patient to physical therapy Acute right lower quadrant pain 06/09/2024 Assessment [...] muscle spasm. No focal motor neuro deficits. [place] of muscle relaxer, rest, crutches given. Return is symptoms worsen or do not improve. Assessment & Plan (06/09/2024 3:21 PM EST): Quadriceps muscle spasm. No focal motor neuro deficits. [place] of muscle relaxer, rest, crutches given. Return is symptoms worsen or do not improve. 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 05/16/2024 Right lower quadrant pain 10/23/2023 Assessment & Plan (10/23/2023 3:06 PM EDT): Unclear etiology, non surgical on exam, will recheck CMP, urine Vitamin D insufficiency 10/23/2023 Adjustment insomnia 08/01/2022 Dizziness 02/01/2018 Obstructive sleep apnea syndrome 05/04/2013 Chronic mixed headache syndrome 11/09/2012 Syphilis 11/09/2012 Hypertension 12/09/2011 Assessment & Plan (11/03/2024 2:45 PM EDT): Uncontrolled in office today Ensure that he has taken BP med today F/U with front facer/nurses visit if his BP is elevated at home Assessment & Plan (10/23/2023 3:07 PM EDT): [...] 2 diabetes mellitus 10/07/2011 Assessment & Plan (11/24/2024 5:06 PM EDT): Continue with current insulin regimen, metformin and Trulicity 0.25 mg weekly I printed for him his pharmacy CDTM appointment Assessment & Plan (11/03/2024 2:42 PM EDT): Patient not sure which medications he has or is taken. Refills given of all DM2 mediations. He will make an appointment with CDTM, bring his medications, and review insulin titration with them, down to A1C below 9. Would also recommend considering [facility] and is open to discussing that at a future date. Assessment & Plan (05/21/2024 7:21 PM EST): [...] <130 2 hour post prandial goal: <180 Resolved Problems Problem Noted Date Diagnosed Date Resolved Date Depression, recurrent 10/23/20232024 Anxiety and depression 08/01/202212/05 Encounters * This document contains information received from the source organization and may not represent a complete record from that organization. Date Type Department Care Team Description 05/26/2025 10:00 AM EST Office Visit [facility] [address] [place] [phone] Amanda Boucher DO Scrotal pain (Primary Dx); Essential hypertension 05/26/2025 Travel 05/25/2025 Telephone [facility] [address] [place] [address] Emmie Pina MD Nurse Triage 05/02/[address] [phone] Emmie Pina MD Chart Prep 04/28/[address] [address] Emmie Pina MD Type 2 diabetes mellitus with hyperglycemia, with long-term current use of insulin (HCC) 04/11/[address] [phone] Emmie Pina MD Appointment Request 04/05/[address] [phone] Emmie Pina MD [facility] Follow Up 03/21/2025 Travel 02/24/[address] [phone] Emmie Pina MD Prior Authorization ([employer] PA: Fluticasone Propionate) from Last 3 Months Immunizations Immunization Administration Dates Next Due Hep B, adult [...] Passive Smoke Exposure: Never Smokeless Tobacco: Never Tobacco Cessation:Counseling Given: Not [...] 22 05/26/2025 10:20 AM EST Oxygen Saturation 98% 08/03/2024 11:29 AM EST Inhaled Oxygen Concentration - - Weight 109 kg (240 lb) 05/26/2025 10:20 AM EST Height 162.6 cm (5' 4 ) 05/26/2025 10:20 AM EST Body Mass Index 41.2 05/26/2025 10:20 AM EST Plan of Treatment Upcoming Encounters Date Type Department Care Team (Late st Contact Info) Description 06/08/2025 1:30 PM EST Medication Management [facility] [address] [place] [address] Virginia Poon, PharmD [address] [place] [address] Health Maintenance Due Date Last Done Comments CT Colonography 1961 FIT DNA/Cologuard 1961 FIT 1961 FOBT 1961 Sigmoidoscopy 1961 Disability Screening 1961 Eye Exam 09/03/1971 Hepatitis B Vaccines (3 of 3 - 19+ 3-dose series) 10/20/2008 08/25/2008, 04/07/2008 Pneumococcal Vaccine: 50+ Years (2 of 2 - PCV) 08/25/2009 08/25/2008 RSV Patients and Patients Aged 60 years or older (1 - Risk 50-74 years 1-dose series) 09/03/2011 Zoster Vaccines (1 of 2) 09/03/2011 Colonoscopy 08/01/2023 08/01/2013 Colorectal Cancer Screening 08/01/2023 Diabetes: Urine Protein Screening 10/22/2024 10/23/2023 COVID-19 Vaccine ( season) 2025 Influenza Vaccine (#1) 2025 9, 06/02/2018, 07/28/2017, Additional history exists Depression Monitoring 05/05/2025 11/02/2024, 025 Lipid Panel 06/03/2025 06/03/2024, 05/0 08/2023, 03/03/2022 Diabetes: Hemoglobin A1C 06/20/2025 025, 11/02/2024, 08/03/2024, Additional history exists Alcohol/Substance Use Screening 11/02/2025 11/02/2024 Diabetes: Foot Exam 11/02/2025 11/02/2024, 11/02/2024, 11/02/2024, Additional history exists SDOH Screening 11/02/2025 11/02/2024 Tobacco Screening 11/24/2025 11/24/2024 DTaP/Tdap/Td Vaccines (3 - Td or Tdap) [...] patient's age to complete this topic Meningococcal B Vaccine Aged Out No l onger eligible based on patient's age to complete this topic Meningococcal Vaccine Aged Out No ezequiel jefferson eligible based on patient's age to complete this topic RSV under 20 months Aged Out No longe r eligible based on patient's age to complete this topic Rotavirus Vaccines Aged Out No longer eligible based on patient's age to complete this topic Goals Goal Patient Goal Type Associated Problems [...] chronic kidney disease No Amanda Boucher DO Procedures Procedure Name Priority Date/Time Associated Diagnosis Comments POCT URINALYSIS DIPSTICK Routine 05/26/2025 11:18 AM EST Scrotal pain POCT GLYCATED HEMOGLOBIN, TOTAL Routine 03/21/2025 2:34 PM EDT Type 2 diabetes mellitus with hyperglycemia, with long-term current use of insulin ([facility]) LIPID PANEL, STANDARD Routine 06/03/2024 10:41 AM EST Type 2 diabetes mellitus with hyperglycemia, with long-term current use of insulin (CMS/HCC) HEPATITIS C AB W/REFL TO HCV RNA, QN, PCR Routine 10/23/2023 10:00 AM EDT Healthcare maintenance HIV 1/2 ANTIGEN/ANTIBODY, FOURTH GENERATION W/RFL Routine 10/23/2023 10:00 AM EDT Healthcare maintenance ALBUMIN, RANDOM URINE W/CREATININE Routine 10/23/2023 10:00 AM EDT Type 2 diabetes mellitus with hyperglycemia, with long-term current use of insulin (CMS/HCC) HM COLONOSCOPY Routine 08/01/2013 2:10 PM EST from Last 3 Months or Most Recently Relevant to Health Maintenance Results * POCT Urinalysis (05/26/2025 11:18 AM [...] Media Lot # [id number] Lot# Expiration Date ,586 Urine (Urine, Random) 05/26/2025 11:18 AM EST Amanda Boucher DO POINT OF CARE TEST ENTER/TELMA T ORDERABLES Final Result * (ABNORMAL) POCT Hgb A1c (03/21/2025 2:34 PM EDT) Hemoglobin A1C 11.6(A) 4.0 - 5.7 % Blood 03/21/2025 2:34 PM EDT Emmie Pina MD POINT OF CARE TEST ENTER/EDIT ORDERABLES Final Result * (ABNORMAL) Lipid Panel, Standard (06/03/2024 10:41 AM EST) Triglycerides 205(H) <150 mg/dL [facility] Comment:Desirable Triglyceri de: less than 150 mg/dLBorderline High Triglyceride 150-199 mg/dLHigh Triglyceride: 200-499 mg/dLVery High Triglyceride: greater than or equal to 5OO mg/dL Cholesterol 224(H) <200 mg/dL [facility] Comment:Desirable Cholestero l: less than 200 mg/dLBorderline High Cholesterol: 200-239 mg/dLHigh Cholesterol: greater than 239 mg/dL LDL Cholesterol Calculated 144(H) <100 mg/dL [facility] Comment:Desirable LDL: less than 100 mg/dLNear Optimal/Above Optimal LDL: 110- 129 mg/dLBorderline High LDL: 130-159 mg/dLHigh LDL: 160-189 mg/dLVery High LDL: greater than or equal to 190 mg/dL HDL Cholesterol 39(L) >40 mg/dL [facility] Comment:Desirable HDL: great er than 40 mg/dL Note: This HDL assay may give artificially low results in patients with liver disease. Blood Venous blood specimen / Unknown 06/03/2024 10:41 AM EST 06/03/2024 11:04 AM EST Emmie Pina MD LAB BLOOD ORDERABLES Final Res ult [facility] [address] [place], [place] [phone] * (ABNORMAL) Albumin, Random Urine W/Creatinine (10/23/2023 10:00 AM EDT) Creatinine, Urine 96.27 mg/dL [facility] Microalbumin Urine 116.0 mg/L [facility] Microalbum Creatinine Ratio Ur 120.4(H) <30 ug/mg cr [facility] Comment:Albumin/Creatinine R atio Reference Ranges: Normal: < 30 ug/mg creatinine Microalbuminuria: 30 - 300 ug/mg creatinineClinical Albuminuria: > 300 ug/mg creatinine Urine (Urine, Random) 10/23/2023 10:00 AM EDT 10/23/2023 11:21 AM EDT Emmie Pina MD LAB URINE ORDERABLES Final Res ult Performing Organization Address [facility] Co de Phone Number [facility] [address] [place] [phone] * Hepatitis C Antibody with Reflex to HCV, RNA, Quantitative, Real-Time PCR (10/23/2023 10:00 AM EDT) Hepatitis C Antibody Nonreactive Nonreactive [facility] Comment:Antibodies to HCV no t detected; does not exclude early acuteHCV infection. Blood Venous blood specimen / Unknown 10/23/2023 10:00 AM EDT 10/23/2023 11:35 AM EDT Emmie Pina MD LAB BLOOD ORDERABLES Final Res ult Performing Organization Address [facility] de Phone Number [facility] [address] [place] [phone] * HIV-1/2 Antigen and Antibodies, Fourth Generation, with Reflexes (10/23/2023 10:00 AM EDT) HIV AB/AG Nonreactive Nonreactive [facility] Comment:HIV-1 p24 Ag and/or HIV-1/HIV-2 Ab not detected.A test result that is nonreactive does not exclude thepossibility of exposure to or infection with HIV-1 and/orHIV-2. Nonreactive results in this assay for individualswith prior exposure to HIV-1 and/or HIV-2 may be due toantigen and antibody levels that are below the limit ofdetection of this assay.The HaveMyShift HIV Ag/Ab Combo assay result andsupplemental assay results should be interpreted inconjunction with the patient's clinical presentation,history and other laboratory results. If the results areinconsistent with clinical evidence, additional testing issuggested to confirm the result. Blood Venous blood specimen / Unknown 10/23/2023 10:00 AM EDT 10/23/2023 11:35 AM EDT us Emmie Pina MD LAB BLOOD ORDERABLES Final Res ult [facility] [address] [place] [address] [phone] * Hm Colonoscopy (08/01/2013 2:10 PM EST) Colonoscopy Normal Normal Narrative Rhea Narayan - 08/01/2013 2:10 PM EST Recommended 10 year follow up us Historical Provider HEALTH MAINTENANCE Final Result from Last 3 Months or Most Recently Relevant to Health Maintenance Additional Health Concerns Active Problems Noted Date [...] 05/26/2025 Patient has chronic kidney disease 05/26/2025 Insurance [facility] MEDICARE ADVANTAGE Care Teams Asphalt Surface Heater Operator Relationship Specialty Start Date End Date Emmie Pina MD [address] [place] [address] PCP - General Family Medicine 10/23/23 Virginia Poon, Traci [address] [place] [address] Pharmacist Pharmacy 12/21/24
[2025-05-27 01:43] LABS: CT PCR Urine NOT DETECTED (Not Detect.); NG PCR Urine NOT DETECTED (Not Detect.)
== END 2025-05-26 17:39 | disposition home or self-care (01) ==
LOC: HO.HHCLNP 17:38
PROVIDERS: Visit Provider Family Medicine
DX: Z20.2 Contact with and (suspected) exposure to infections with a predominantly sexual mode of transmission (principal); N50.82 Scrotal pain
CPT/HCPCS: 87086; 87491; 87591

== ENCOUNTER 2025-06-21 15:07 | Outpatient (REF) | payer MEDICARE, SELFPAY ==
--- NOTE | ~2025-06-21 | US_ITS ---
EXAMINATION: US SCROTUM HISTORY: nocturnal scrotal discomfort. COMPARISON: There are no prior studies available for comparison. FINDINGS: Real-time grayscale ultrasound imaging of the scrotum was performed. RIGHT TESTICLE: The right testis measures 4.5 x 1.8 x 2.4 cm and demonstrates normal homogeneous echotexture. No masses are seen. The right testis demonstrates normal color and spectral Doppler flow. RIGHT EPIDIDYMIS: Normal in size, shape, and vascularity. LEFT TESTICLE: The left testis measures 4.0 x 1.9 x 2.2 cm and demonstrates normal homogeneous echotexture. No masses are seen. The left testis demonstrates normal color and spectral Doppler flow. LEFT EPIDIDYMIS: Normal in size, shape, and vascularity. VARICOCELE: None. HYDROCELE: No significant hydrocele is seen. OTHER COMMENTS: None. US/US scrotum IMPRESSION: Unremarkable scrotal ultrasound. Electronically signed by: Nikolas Read MD 06/21/2025 03:44 PM [facility]
--- OUTSIDE RECORDS SUMMARY | 2025-06-21 15:51 | XMS_ITS | Encounter Summary ---
Author Organization [employer] Address [address] [place] [address] [address] [place] [address] Care Team Providers Care Computer Security Manager Name Role Phone Sury Phillips Primary Care Provider [phone] Emmie Pina MD Primary Care Provider [phone] Virginia Poon PharmD Unavailable Encounter Details Date Type Department Care Team (Late st Contact Info) Description 12/03/2022 Abstract [facility] [address] [place] [address] Sury Phillips FNP [address] [place] [address] Social History Tobacco Use Types Packs/Day Years [...] Care Team (Late st Contact Info) Description 07/13/2025 3:00 PM EST Medication Management [facility] [address] [place] [address] Virginia Poon, PharmD [address] [place] [address] 07/26/2025 10:45 AM EST Office Visit [facility] [address] [place] [address] Emmie Pina MD [address] [place] [address] 10/19/2025 1:30 PM EDT Office Visit [facility] [address] [place] [address] Tarstacey Tamra, OD [address] [place] [address] documented as of this encounter Procedures Procedure Name Priority Date/Time Associated Diagnosis Comments COLONOSCOPY Routine 08/01/2013 2:10 PM EST documented in this encounter Results * Colonoscopy (08/01/2013 2:10 PM EST) Colonoscopy Normal Normal Narrative Rhea Narayan - 08/01/2013 2:10 PM EST Recommended 10 year follow up Historical Provider HEALTH MAINTENANCE Final Result documented in this encounter Visit Diagnoses Not on filedocumented in this encounter Additional Health Concerns Assessment Noted Time PHQ-9 Depression Total Score: 18 023 10:57 AM EST documented as of this encounter Care Teams Computer Security Manager Relationship Specialty Start Date End Date Sury Phillips FNP [address] [place] [phone] PCP - General Family Medicine 05/08/22 01/07/23 Emmie Pina MD [address] [place] [phone] PCP - General Family Medicine 10/23/23 Virginia Poon, PharmD [address] [place] [phone] Pharmacist Pharmacy 12/21/24 documented as of this encounter
--- OUTSIDE RECORDS SUMMARY | 2025-06-21 15:51 | XMS_ITS | Encounter Summary ---
Author Organization [employer] Address [address] [place] [address] [address] [place] [address] Care Team Providers Care Director Of Strategic Partnerships Name Role Phone Sury Phillips Primary Care Provider [phone] Emmie Pina MD Primary Care Provider Virginia Poon PharmD Unavailable Reason for Visit * Reason Onset Date Comments triage 07/31/2022 Encounter Details Date Type Department Care Team (Late st Contact Info) Description 07/31/2022 Telephone [facility] [address] [place] [address] Sury Phillips FNP [address] [place] [address] triage Social History Tobacco Use Types Packs/Day [...] 07/31/2022 4:06 PM EST Called pt. [employer] [facility] production team advisor Karma [phone]. Site Medical Director called both provided numbers 2 x and got messages that there is an error when trying to dial . Site Medical Director put me through to a new production team advisor in case it was a bad connection on her part. New production team advisor Elizabeth [phone] called [phone] and pt. Answered phone. Pt. States that [...] send this note so that a [facility] clinician can bepresent at office visit and [...] pt requesting a phycologist referral pt speaks cape verdean documented in this encounter Plan of Treatment Upcoming Encounters Date Type Department Care Team (Late st Contact Info) Description 07/13/2025 3:00 PM EST Medication Management [facility] [address] [place] [address] Virginia Poon PharmD [address] [place] [address] 07/26/2025 10:45 AM EST Office Visit [facility] [address] [place] [address] Emmie Pina MD [address] [place] [address] 10/19/2025 1:30 PM EDT Office Visit [facility] [address] [place] [address] TarTamra ibarra, OD [address] [place] [address] documented as of this encounter Visit Diagnoses Not on filedocumented in this encounter Care Teams Director Of Strategic Partnerships Relationship Specialty Start Date End Date Sury Phillips FNP [address] [place] [phone] PCP - General Family Medicine 05/08/22 01/07/23 Emmie Pina MD [address] [place] [phone] PCP - General Family Medicine 10/23/23 Virginia Poon PharmD [address] [place] [phone] Pharmacist Pharmacy 12/21/24 documented as of this encounter
--- OUTSIDE RECORDS SUMMARY | 2025-06-21 15:51 | XMS_ITS | Clinical Summary ---
Author Organization [employer] Address [address] [place] [address] [address] [place] [address] Care Team Providers Care [employer] Name Role Phone Emmie Pina MD Primary Care Provider [phone] Virginia Poon PharmD Unavailable [phone] Allergies Active Allergy Reactions Criticality Noted Date Comments Codeine Dizziness Low 04/16/2012 Medications * This document contains information received from the source organization and may not represent a complete record from that organization. albuterol (Ventolin HFA) 108 (90 Base) MCG/ACT inhaler Inhale 2 puffs every 4 (four) hours if needed for wheezing. 18 g 11 2:56 PM EST 025 Active aspirin 81 MG EC tabletIndication s:Type 2 diabetes mellitus with hyperglycemia, with long-term current use of insulin (HCC) Take 1 tablet (81 mg) by mouth Once per day. 90 tablet 3 025 Active atorvastatin (Lipitor) 80 MG tabletIndication s:Type 2 diabetes mellitus with hyperglycemia, with long-term current use of insulin (HCC) Take 1 tablet (80 mg) by mouth Once per day. 90 tablet 3 025 Active cholecalciferol (Vitamin D-3) 50 MCG (2000 UT) capsuleIndicatio ns:Vitamin D insufficiency Take 1 capsule by mouth every morning 90 capsule 3 025 Active fluticasone (Flovent HFA) 110 MCG/ACT inhaler Inhale 1 puff every 12 (twelve) hours. 12 g 11 025 Active Additional Information Patient not taking.Reason: PA denied on 02/24/25, Reported on 03/21/2025 gabapentin (Neurontin) 300 MG capsuleIndicatio ns:Type 2 diabetes mellitus with hyperglycemia, with long-term current use of insulin (HCC) Take 1 capsule (300 mg) by mouth if needed in the morning, at noon, and at bedtime (pain in nerves). 90 capsule 11 5 4:29 PM EST 025 2025 Active OLANZapine (ZyPREXA) 2.5 MG tabletIndication s:Psychogenic formication Take 1 tablet (2.5 mg) by mouth at bedtime. For itching 30 tablet 2 025 Active clotrimazole (Lotrimin) 1 % creamIndications :Fungal rash of torso Apply topically 2 times daily for 28 days. ON NECK 30 g 5 5 2:56 PM EST 025 2025 Active Continuous Glucose Regulatory Associate (FreeStyle Nova 3 [place]) device 1 each Once per day. Use as directed for CGM 1 each 025 Active Continuous Glucose Sensor (FreeStyle Nova 3 Plus Sensor) misc 1 each every 15 days. Apply 1 every 15 days as directed for CGM 2 each 5 2:56 PM EST 025 Active glucose blood (FreeStyle Precision Fox Test) test strip Use to test blood sugar 4 times daily in case of CGM failure or extremes of BG 100 each 5 2:56 PM EST 025 2025 Active Blood Pressure kit Use to check BP once daily as directed 1 kit 025 Active insulin lispro (HumaLOG) 100 UNIT/ML injection Use 20 units with breakfast, lunch and dinner 15 mL 11 5 2:56 PM EST 025 Active insulin pen needle 32G x 4 mm misc Use to inject insulin 4 times daily 100 each 5 2:56 PM EST 025 Active TRUEplus Lancets 33G misc Use to test blood sugar 4 time(s) daily 100 each 5 2:56 PM EST 025 Active insulin degludec (Tresiba FlexTouch) 200 UNIT/ML injectionIndicat ions:Type 2 diabetes mellitus with hyperglycemia, with long-term current use of insulin ([facility]) Inject 20 Units under the skin at bedtime. 9 mL 2 5 4:29 PM EST 025 Active Alcohol Swabs (Alcohol Prep) 70 % padsIndications: Type 2 diabetes mellitus with hyperglycemia, with long-term current use of insulin ([facility]) USE DIRECTED TWICE DAILY 100 each 11 025 Active acetaminophen (Tylenol 8 Hour) 650 MG ER tablet Take 1 tablet (650 mg) by mouth every 8 (eight) hours if needed for mild pain. Do not crush, chew, or split. 40 tablet 1 025 2025 Active Dulaglutide (Trulicity) 1.5 MG/0.5ML solution auto-injectorInd ications:Type 2 diabetes mellitus with hyperglycemia, with long-term current use of insulin ([facility]) Inject 1.5 mg under the skin 1 (one) time per week. 2 mL 11 5 2:56 PM EST 025 Active lisinopril 40 MG tabletIndication s:Type 2 diabetes mellitus with hyperglycemia, with long-term current use of insulin ([facility]),Essential hypertension TAKE 1 TABLET BY MOUTH EVERY MORNING 90 tablet 1 Active omeprazole (PriLOSEC) [address] capsule Take 1 capsule (20 mg) by mouth with breakfast. TAKE 1 CAPSULE BY MOUTH EVERY DAY AT NOON 90 capsule 1 025 Active triamcinolone (Kenalog) 0.1 % cream APPLY TOPICALLY TO THE AFFECTED AREA(S) TWICE DAILY IN THE MORNING AND AT BEDTIME FOR RASH 30 g 3 025 Active lisinopril 40 MG tablet TAKE 1 TABLET BY MOUTH EVERY MORNING 90 tablet 3 024 2024 Discontinued(R marielle (will not trigger notification to Pharmacy)) triamcinolone (Kenalog) 0.1 % cream Apply topically if needed in the morning and at bedtime for rash. 30 g 3 5 2:56 PM EST 025 2024 Discontinued omeprazole (PriLOSEC) [address] capsule TAKE 1 CAPSULE BY MOUTH EVERY DAY AT NOON 90 capsule 025 2024 Discontinued(R eorder (will not trigger notification to Pharmacy)) Dulaglutide 0.75 MG/0.5ML solution auto-injectorInd ications:Type 2 diabetes mellitus with hyperglycemia, with long-term current use of insulin (HCC) Inject 0.75 mg under the skin 1 (one) time per week. 2 mL 3 4:29 PM EST 025 2024 Discontinued(D ose adjustment) Active Problems Problem Noted Date Diagnosed Date Moderate major depression (CMS/HCC) 12/05/2024 Rash 11/24/2024 Assessment & Plan (11/24/2024 [...] muscle spasm. No focal motor neuro deficits. Canadian of muscle relaxer, rest, crutches given. Return is symptoms worsen or do not improve. Assessment & Plan (06/09/2024 3:21 PM EST): Quadriceps muscle spasm. No focal motor neuro deficits. Canadian of muscle relaxer, rest, crutches given. 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 Date Type Department Care Team Description 06/14/2025 Refill [facility] [place] [address] Emmie Pina MD 06/13/2025 Telephone [facility] [place] [address] Emmie Pina MD Appointment Request 06/08/2025 Refill [facility] [place] [address] Jacqueline George NP 06/08/2025 Travel 05/26/2025 10:00 AM EST Office Visit [facility] [place] [address] Amanda Boucher DO Scrotal pain (Primary Dx); Essential hypertension 05/26/2025 Orders Only [facility] [place] [address] Amanda Boucher DO 05/26/2025 Travel 05/25/2025 Telephone [facility] [place] [address] Emmie Pina MD Nurse Triage 05/02/2025 Telephone [facility] [place] [address] Emmie Pina MD Chart Prep 04/28/2025 Refill [facility] [place] [address] Emmie Pina MD Type 2 diabetes mellitus with hyperglycemia, with long-term current use of insulin (HCC) 04/11/2025 Telephone [facility] [place] [address] Emmie Pina MD Appointment Request 04/05/2025 Telephone [facility] [place] [address] Emmie Pina MD I Follow Up 03/21/2025 Travel from Last 3 Months Immunizations Immunization Administration [...] the past 12 months, has t he [employer], gas, oil or water [employer] threatened to shut off services in your [...] Sign Reading Time Taken Comments Blood Pressure 138/78 06/08/2025 1:53 PM EST Pulse 80 05/26/2025 10:20 AM EST [...] Description 07/13/2025 3:00 PM EST Medication Management [facility] [address] [place] [address] Virginia Poon, PharmD [address] [place] [address] 07/26/2025 10:45 AM EST Office Visit [facility] [address] [place] [address] Emmie Pina MD [address] [place] [address] 10/19/2025 1:30 PM EDT Office Visit [facility] [address] [place] [address] Tamra Lewis, OD [address] [place] [address] Health Maintenance Due Date Last Done Comments [...] Urine Protein Screening 10/22/2024 10/23/2023 COVID-19 Vaccine (1 - season) 2025 Influenza Vaccine (#1) 2025 9, 06/02/2018, 07/28/2017, Additional history exists Depression Monitoring 05/05/2025 11/02/2024, 025 Lipid Panel 06/03/2025 06/03/2024, 05/0 08/2023, 03/03/2022 Diabetes: Hemoglobin A1C 09/06/2025 025, 03/21/2025, 11/02/2024, Additional history exists Alcohol/Substance Use Screening 11/02/2025 [...] chronic kidney disease No Amanda Boucher DO Weekly blood pressure task Care Plan Weekly blood pressure task No Puia, Virginia, PharmD Weekly blood pressure task Care Plan Weekly blood pressure task No Puia, Virginia, PharmD Patient has chronic kidney disease Care Plan Patient has chronic kidney disease No Puia, Virginia, PharmD Patient has chronic kidney disease Care Plan Patient has chronic kidney disease No Puia, Virginia, PharmD Weekly blood pressure task Care Plan Weekly blood pressure task No Puia, Virginia, PharmD Weekly blood pressure task Care Plan Weekly blood pressure task No Puia, Virginia, PharmD Patient has chronic kidney disease Care Plan Patient has chronic kidney disease No Puia, Virginia, PharmD Patient has chronic kidney disease Care Plan Patient has chronic kidney disease No Puia, Virginia, PharmD Weekly blood pressure task Care Plan Weekly blood pressure task No Colon Shanelle Arevalo Weekly blood pressure task Care Plan Weekly blood pressure task No Colon Shanelle Arevalo Patient has chronic kidney disease Care Plan Patient has chronic kidney disease No Colon Mickey Shanelle Patient has chronic kidney disease Care Plan Patient has chronic kidney disease No Colon Shanelle Arevalo Procedures Procedure Name Priority Date/Time Associated Diagnosis Comments US SCROTUM Urgent 06/21/2025 3:20 PM EST Scrotal pain POCT GLYCATED HEMOGLOBIN, TOTAL Routine 06/08/2025 2:06 PM EST Type 2 diabetes mellitus with hyperglycemia, with long-term current use of insulin ([facility]) POCT URINALYSIS DIPSTICK Routine 05/26/2025 11:18 AM EST Scrotal pain CHLAMYDIA/TRICHOMONA S/NEISSERIA GONORRHOEAE, PCR, URINE Routine 05/26/2025 10:40 AM EST CULTURE, URINE, ROUTINE Routine 05/26/2025 10:40 AM EST Scrotal pain POCT GLYCATED HEMOGLOBIN, TOTAL Routine 03/21/2025 2:34 PM EDT Type 2 diabetes mellitus with hyperglycemia, with long-term current use of insulin ([facility]) LIPID PANEL, STANDARD Routine 06/03/2024 10:41 AM EST Type 2 diabetes mellitus with hyperglycemia, with long-term current use of insulin ([facility]) HEPATITIS C AB W/REFL TO HCV RNA, [...] Recently Relevant to Health Maintenance Results * US Scrotum (06/21/2025 3:20 PM EST) Anatomical Region Laterality Modality Body Ultrasound 06/21/2025 3:20 PM EST Narrative 06/21/2025 3:47 PM EST [address] [address] Ultrasound Report Signed Patient: Juan Rodrigez MR#: [id number] 0 : 1960 Acct:[id number] Age/Sex: 64 / M ADM Date: 06/21/25 Loc: HO.US Attending Dr: Amanda Boucher DO Ordering Physician: Aamnda Boucher DO Date of Service: 06/21/25 Procedure(s): US scrotum Accession Number(s): [id number] cc: Amanda Boucher DO Reason for Exam: nocturnal scrotal discomfort EXAMINATION: US SCROTUM HISTORY: nocturnal scrotal discomfort. COMPARISON: There are no prior studies available for comparison. FINDINGS: Real-time grayscale ultrasound imaging of the scrotum was performed. RIGHT TESTICLE: The right testis measures 4.5 x 1.8 x 2.4 cm and demonstrates normal homogeneous echotexture. No masses are seen. The right testis demonstrates normal color and spectral Doppler flow. RIGHT EPIDIDYMIS: Normal in size, shape, and vascularity. LEFT TESTICLE: The left testis measures 4.0 x 1.9 x 2.2 cm and demonstrates normal homogeneous echotexture. No masses are seen. The left testis demonstrates normal color and spectral Doppler flow. LEFT EPIDIDYMIS: Normal in size, shape, and vascularity. VARICOCELE: None. HYDROCELE: No significant hydrocele is seen. OTHER COMMENTS: None. US/US scrotum IMPRESSION: Unremarkable scrotal ultrasound. Electronically signed by: Nikolas Read MD 06/21/2025 03:44 PM EST Dictated By: Nikolas Read MD Signed By: <Electronically signed by Nikolas Read MD in OV> 06/21/25 1544 DD/ 1520 TD/TT: 06/21/25 1530 Vice President: Procedure Note Donotuseinterpreter, Image - 06/21/[address] [address] Ultrasound Report Signed Patient: La Rodrigez#: [id number] 0 : 1960cct:[id number] Age/Sex: 64 / MADM Date: 06/21/25 Loc: HO.US Attending Dr: Amanda Boucher DO Ordering Physician: Amanda Boucher DO Date of Service: 06/21/25 Procedure(s): US scrotum Accession Number(s): [id number] cc: Amanda Boucher DO Reason for Exam: nocturnal scrotal discomfort EXAMINATION: US SCROTUM HISTORY: nocturnal scrotal discomfort. COMPARISON: There are no prior studies available for comparison. FINDINGS: Real-time grayscale ultrasound imaging of the scrotum was performed. RIGHT TESTICLE: The right testis measures 4.5 x 1.8 x 2.4 cm and demonstrates normal homogeneous echotexture. No masses are seen. The right testis demonstrates normal color and spectral Doppler flow. RIGHT EPIDIDYMIS: Normal in size, shape, and vascularity. LEFT TESTICLE: The left testis measures 4.0 x 1.9 x 2.2 cm and demonstrates normal homogeneous echotexture. No masses are seen. The left testis demonstrates normal color and spectral Doppler flow. LEFT EPIDIDYMIS: Normal in size, shape, and vascularity. VARICOCELE: None. HYDROCELE: No significant hydrocele is seen. OTHER COMMENTS: None. US/US scrotum IMPRESSION: Unremarkable scrotal ultrasound. Electronically signed by: Nikolas Read MD 06/21/2025 03:44 PM EST Dictated By: Nikolas Read MD Signed By: <Electronically signed by Nikolas Read MD in OV> 06/21/25 1544 DD/ 1520 TD/TT: 06/21/25 1530 Vice President: Amanda Boucher DO IMG US PROCEDURES Final Resu lt * (ABNORMAL) POCT Hgb A1c (06/08/2025 2:06 PM EST) Only the most recent of2 resultswithin the time period is included. Hemoglobin A1C 8.7(A) 4.0 - 5.7 % Blood 06/08/2025 2:06 PM EST Emmie Pina MD POINT OF CARE TEST ENTER/EDIT ORDERABLES Final Result * POCT Urinalysis (05/26/2025 11:18 AM EST) [...] Media Lot # [id number] Lot# Expiration Date ,502 Urine (Urine, Random) 05/26/2025 11:18 AM EST Amanda Boucher DO POINT OF CARE TEST ENTER/TELMA T ORDERABLES Final Result * Chlamydia/Trichomonas/Neisseria gonorrhoeae, PCR, Urine (05/26/2025 10:40 AM EST) CT PCR, Urine NOT DETECTED Not Detect. [facility] Comment:A not detected test result does not exclude the possibilityof infection because test results can be affected byimproper specimen collection, concurrent antibiotic therapy,or the number of organisms in the specimen which may bebelow the sensitivity of the test. As with many diagnostictests, results from the Xpert CT/NG assay should beinterpreted in conjunction with other laboratory andclinical data available to the clinician.The Xpert CT/NG assay should not be used for the evaluationof suspected sexual abuse or for other medico-legalindications. Additional testing is recommended in anycircumstance when false positive or false negative resultscould lead to adverse medical, social or psychologicalconsequences. NG PCR, Urine NOT DETECTED Not Detect. [facility] Comment:A not detected test result does not exclude the possibilityof infection because test results can be affected byimproper specimen collection, concurrent antibiotic therapy,or the number of organisms in the specimen which may bebelow the sensitivity of the test. As with many diagnostictests, results from the Xpert CT/NG assay should beinterpreted in conjunction with other laboratory andclinical data available to the clinician.The Xpert CT/NG assay should not be used for the evaluationof suspected sexual abuse or for other medico-legalindications. Additional testing is recommended in anycircumstance when false positive or false negative resultscould lead to adverse medical, social or psychologicalconsequences. 05/26/2025 10:4 0 AM EST 05/26/2025 5:42 PM EST Amanda Boucher DO LAB URINE ORDERABLES Final R esult Performing Organization Address [facility]/ZIP Co de Phone Number [facility] [address] [place] [phone] * Urine Culture Routine (05/26/2025 10:40 AM EST) Urine Urine specimen obtained by clean catch procedure / Unknown 05/26/2025 10:40 AM EST 05/26/2025 5:38 PM EST Comment:UACC Narrative [facility] - 05/28/2025 10:51 AM EST Urine Culture No growth. Specimen Source: Urine clean catch Amanda Boucher DO LAB MICROBIOLOGY - GENERAL O RDERABLES Final Result Performing Organization Address City/[facility]/ZIP Co de Phone Number [facility] [address] [place] [phone] * (ABNORMAL) Lipid Panel, Standard (06/03/2024 10:41 AM EST) Triglycerides 205(H) <150 mg/dL [facility] Comment:Desirable Triglyceri de: less than 150 mg/dLBorderline High Triglyceride 150-199 mg/dLHigh Triglyceride: 200-499 mg/dLVery High Triglyceride: greater than or equal to 5OO mg/dL Cholesterol 224(H) <200 mg/dL [facility] Comment:Desirable Cholestero l: less than 200 mg/dLBorderline High Cholesterol: 200-239 mg/dLHigh Cholesterol: greater than 239 mg/dL LDL Cholesterol Calculated 144(H) <100 mg/dL [facility] Comment:Desirable LDL: less than 100 mg/dLNear Optimal/Above Optimal LDL: 110- 129 mg/dLBorderline High LDL: 130-159 mg/dLHigh LDL: 160-189 mg/dLVery High LDL: greater than or equal to 190 mg/dL HDL Cholesterol 39(L) >40 mg/dL [facility] Comment:Desirable HDL: great er than 40 mg/dL Note: This HDL assay may give artificially low results in patients with liver disease. Blood Venous blood specimen / Unknown 06/03/2024 10:41 AM EST 06/03/2024 11:04 AM EST us Emmie Pina MD LAB BLOOD ORDERABLES Final Res ult [facility] [address] [place] [phone] [phone] * (ABNORMAL) Albumin, Random Urine W/Creatinine (10/23/2023 10:00 AM EDT) Creatinine, Urine 96.27 mg/dL [facility] Microalbumin Urine 116.0 mg/L [facility] Microalbum Creatinine Ratio Ur 120.4(H) <30 ug/mg cr [facility] Comment:Albumin/Creatinine R atio Reference Ranges: Normal: < 30 ug/mg creatinine Microalbuminuria: 30 - 300 ug/mg creatinineClinical Albuminuria: > 300 ug/mg creatinine Urine (Urine, Random) 10/23/2023 10:00 AM EDT 10/23/2023 11:21 AM EDT us Emmie Pina MD LAB URINE ORDERABLES Final Res ult Performing Organization Address [facility]/ZIP Co de Phone Number [facility] [address] [place] [phone] * Hepatitis C Antibody with Reflex to HCV, RNA, Quantitative, Real-Time PCR (10/23/2023 10:00 AM EDT) Hepatitis C Antibody Nonreactive Nonreactive [facility] Comment:Antibodies to HCV no t detected; does not exclude early acuteHCV infection. Blood Venous blood specimen / Unknown 10/23/2023 10:00 AM EDT 10/23/2023 11:35 AM EDT us Emmie Pina MD LAB BLOOD ORDERABLES Final Res ult Performing Organization Address [facility] Co de Phone Number [facility] [address] [place] [phone] * HIV-1/2 Antigen and Antibodies, Fourth Generation, with Reflexes (10/23/2023 10:00 AM EDT) HIV AB/AG Nonreactive Nonreactive [facility] Comment:HIV-1 p24 Ag and/or HIV-1/HIV-2 Ab not detected.A test result that is nonreactive does not exclude thepossibility of exposure to or infection with HIV-1 and/orHIV-2. Nonreactive results in this assay for individualswith prior exposure to HIV-1 and/or HIV-2 may be due toantigen and antibody levels that are below the limit ofdetection of this assay.The [employer] HIV Ag/Ab Combo assay result andsupplemental assay results should be interpreted inconjunction with the patient's clinical presentation,history and other laboratory results. If the results areinconsistent with clinical evidence, additional testing issuggested to confirm the result. Blood Venous blood specimen / Unknown 10/23/2023 10:00 AM EDT 10/23/2023 11:35 AM EDT us Emmie Pina MD LAB BLOOD ORDERABLES Final Res ult [facility] [address] [place] [phone] [phone] * Hm Colonoscopy (08/01/2013 2:10 PM EST) Colonoscopy Normal Normal Narrative Rhea Narayan - 08/01/2013 2:10 PM EST Recommended 10 year follow up us Historical Provider MD HEALTH MAINTENANCE Final Result from Last 3 [...] 05/26/2025 Patient has chronic kidney disease 05/26/2025 Weekly blood pressure task 06/08/2025 Weekly blood pressure task 06/08/2025 Patient has chronic kidney disease 06/08/2025 Patient has chronic kidney disease 06/08/2025 Weekly blood pressure task 06/08/2025 Weekly blood pressure task 06/08/2025 Patient has chronic kidney disease 06/08/2025 Patient has chronic kidney disease 06/08/2025 Weekly blood pressure task 06/13/2025 Weekly blood pressure task 06/13/2025 Patient has chronic kidney disease 06/13/2025 Patient has chronic kidney disease 06/13/2025 Insurance [facility] Care Teams College Athlete Relationship Specialty Start Date End Date Emmie Pina MD [address] [place], [place] PCP - General Family Medicine 10/23/23 Virginia Poon PharmD [address], [place] Pharmacist Pharmacy 12/21/24
--- OUTSIDE RECORDS SUMMARY | 2025-06-21 15:51 | XMS_ITS | Encounter Summary ---
Author Organization [employer] Address [address] [place] [address] 7[address] [place] [address] Care Team Providers Care Machinist Instructor Name Role Phone Emmie Pina MD Primary Care Provider [phone] Virginia Poon PharmD Unavailable [phone] Reason for Visit * Reason Onset Date Comments Appointment Request 06/13/2025 Encounter Details Date Type Department Care Team ([facility] st Contact Info) Description 06/13/2025 Telephone [facility] MEDICINE [address] [place] [address] Emmie Pina MD [address] [place] [address] Appointment Request Social History Tobacco Use Types [...] encounter Miscellaneous Notes * Telephone Encounter - Krysten Gallego RN - 06/21/2025 10:32 AM EST Noted. Patient seen on 06/26/24 for testicular pain and provider POC was to order a STAT US of testicles however ordered placed as urgent. Per chart, it is US is scheduled for 07/12/24 at [facility]. RN called [facility] CS [phone] to inquire if US appointment can be r/s to a sooner date and time d/tpatient reports of continued pain and US would be next step. RN was provided with an US appointmentfor TODAY at 3:30pm. RN called patient [phone] to inform [facility] can complete scrotal US today at 3:30pm which would bethe next step in POC in order to determine what may be causing the pain internally. Patient reportshe can attend US appointment today. RN advised patient once results are received he will receive a call with next steps/updated POC. Patient is agreeable to this POC. Patient to f/u PRN. * Telephone Encounter - Shanelle Arevalo - 06/13/2025 12:17 PM EST TC from patient requesting a follow-up appointment. Patient stated that since the last visit with the PCP, symptoms remain unchanged. Last appointment was on 05/26. Contact pt at [phone] documented in this encounter Plan of Treatment Upcoming Encounters Date Type Department Care Team (Late st Contact Info) Description 07/13/2025 3:00 PM EST Medication Management [facility] MEDICINE [address] [place] [address] Virginia Poon PharmD [address] [place] [address] 07/26/2025 10:45 AM EST Office Visit [facility] MEDICINE [address] [place] [address] Emmie Pina MD [address] [place] [address] 10/19/2025 1:30 PM EDT Office Visit [facility] OPTOMETRY [address] [place] [address] Tamra Lewis, OD [address] [place] [address] documented as of this encounter Goals Goal [...] Plan Weekly blood pressure task No Colon Mickey, Shanelle Patient has chronic kidney disease Care Plan Patient has chronic kidney disease No Colon Mickey Shanelle Patient has chronic kidney disease Care Plan Patient has chronic kidney disease No Colon Mickey Shanelle documented as of this encounter Visit Diagnoses [...] 06/13/2025 Patient has chronic kidney disease 06/13/2025 Assessment Noted Time PHQ-9 Depression Total Score: 13 /05/08 025 3:21 PM EDT documented as of this encounter Care Teams Machinist Instructor Relationship Specialty Start Date End Date Emmie Pina MD [address] [place] [address] PCP - General Family Medicine 10/23/23 Virginia Poon PharmD [address] [place] [address] Pharmacist Pharmacy 12/21/24 documented as of this encounter
--- OUTSIDE RECORDS SUMMARY | 2025-06-21 15:51 | XMS_ITS | Encounter Summary ---
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 Name Role Phone Desmond Phillipsnnzoë FLORES Primary Care Provider +- Emmie Pina MD Primary Care Provider [phone] Virginia Poon PharmD Unavailable [phone] Encounter Details Date Type Department Care Team (Late st Contact Info) Description 06/06/2022 Orders Only [facility] MEDICINE [address] [place] [address] Lou Goodwin, JB Social History Tobacco Use [...] Description 07/13/2025 3:00 PM EST Medication Management [facility] MEDICINE [address] [place] [id number] Virginia Poon, PharmD [address] [place] [address] 07/26/2025 10:45 AM EST Office Visit [address] [address] Emmie Pina MD [address] [place] [address] 10/19/2025 1:30 PM EDT Office Visit [facility] OPTOMETRY [address] [place], [place] [phone] Tamra Lewis, OD [address] [place] [address] documented as of this encounter Visit Diagnoses Not on filedocumented in this encounter Care Teams Fur Cutting Machine Operator Relationship Specialty Start Date End Date Sury Phillips FNP [address] [place] [address] PCP - General Family Medicine 05/08/22 01/07/23 Emmie Pina MD [address] [place] [phone] PCP - General Family Medicine 10/23/23 Virginia Poon PharmD [address] [place] [phone] Pharmacist Pharmacy 12/21/24 documented as of this encounter
--- OUTSIDE RECORDS SUMMARY | 2025-06-21 15:51 | XMS_ITS | Encounter Summary ---
Author Organization [employer] Address [address] [place] [address] [address] [place] [address] Care Team Providers Care Gardening Instructor Name Role Phone Sury Phillips Primary Care Provider [phone] Emmie Pina MD Primary Care Provider [phone] Virginia Poon PharmD Unavailable [phone] Reason for Visit * Reason Onset Date Comments Appointment Request 06/10/2022 Encounter Details Date Type Department Care Team (Late st Contact Info) Description 06/10/2022 Telephone [facility] MEDICINE [address] [place] [address] Sury Phillips FNP [address] [place] [address] Appointment Request Social History Tobacco Use Types [...] or severe redness. Please contact pt at [phone] documented in this encounter Plan of Treatment Upcoming Encounters Date Type Department Care Team (Late st Contact Info) Description 07/13/2025 3:00 PM EST Medication Management [facility] MEDICINE [address] [place] [address] Virginia Poon PharmD [address] [place] [address] 07/26/2025 10:45 AM EST Office Visit [facility] MEDICINE [address] [place] [address] Emmie Pina MD [address] [place] [address] 10/19/2025 1:30 PM EDT Office Visit [facility] OPTOMETRY [address] [place] [address] Tamra Lewis, OD [address] [place] [address] documented as of this encounter Visit Diagnoses Not on filedocumented in this encounter Care Teams Gardening Instructor Relationship Specialty Start Date End Date Sury Phillips FNP [address] [place] [address] PCP - General Family Medicine 05/08/22 01/07/23 Emmie Pina MD [address] [place] [address] PCP - General Family Medicine 10/23/23 Virginia Poon PharmD [address] [place] [phone] Pharmacist Pharmacy 12/21/24 documented as of this encounter
== END 2025-06-21 15:08 | disposition home or self-care (01) ==
LOC: HO.US 15:07
PROVIDERS: Visit Provider Family Medicine
DX: N50.82 Scrotal pain (principal)
CPT/HCPCS: 76870

== ENCOUNTER → 2025-06-21 15:09 | Outpatient (BNV) | payer MEDICARE, SELFPAY | PROVIDERS: Visit Provider Radiology Diagnostic Radiology | DX: N50.82 Scrotal pain (principal) | CPT/HCPCS: 76870 ==